=== PATIENT | female | born 1950 | race Caucasian/White ===

== ENCOUNTER 2019-08-22 07:50 | Outpatient (CLI) | payer MEDICARE, OTHER, SELFPAY ==
--- NOTE | ~2019-08-22 | MR_ITS ---
EXAMINATION: MR cervical spine wo con DATE: 08/22/2019 08:43 INDICATION: Neck pain. TECHNIQUE: Magnetic resonance imaging (MRI) of the cervical spine was performed without intravenous c ontrast. Sequences included sagittal T2-weighted FSE, sagittal T2-weighted FS FSE, sagittal T1-weight ed FSE, axial MERGE, and axial T2-weighted FSE. COMPARISON: None FINDINGS: There is 2 mm anterolisthesis of C3 on C4. There is 4 degrees levocurvature of cervical spi ne. Vertebral body heights are normal. There is mildly decreased disc height at C3-C4 and severely de creased disc height at C5-C6 and C6-C7. The spinal cord signal intensity is normal. The following dis c levels are specifically discussed: C2-C3: The disc does not extend beyond the endplate margin. There is no uncovertebral joint osteoarth ritis. There is mild bilateral facet joint osteoarthritis. There is no neural foraminal stenosis. The re is no central canal stenosis. C3-C4: The disc is bulging. There is mild bilateral uncovertebral joint osteoarthritis. There is annabel re right and mild left facet joint osteoarthritis. There is moderate right and mild left neural danni inal stenosis. There is mild central canal stenosis. C4-C5: The disc is mildly bulging. There is mild bilateral uncovertebral joint osteoarthritis. There is no facet joint osteoarthritis. There is no neural foraminal stenosis. There is mild central canal stenosis. C5-C6: The disc is bulging. There is severe bilateral uncovertebral joint osteoarthritis. There is no facet joint osteoarthritis. There is mild bilateral neural foraminal stenosis. There is mild central canal stenosis. C6-C7: The disc is bulging. There is severe bilateral uncovertebral joint osteoarthritis. There is no facet joint osteoarthritis. There is mild bilateral neural foraminal stenosis. There is mild central canal stenosis. C7-T1: The disc is bulging. There is mild bilateral uncovertebral joint osteoarthritis. There is mild bilateral facet joint osteoarthritis. There is mild bilateral neural foraminal stenosis. There is no central canal stenosis. IMPRESSION: 1. Severe cervical spondylosis. Reviewed, dictated and finalized at location A.
== END 2019-08-22 07:51 | disposition home or self-care (01) ==
PROVIDERS: Visit Provider Psychiatry & Neurology Neurology
DX: M54.2 Cervicalgia (principal)
CPT/HCPCS: 72141

== ENCOUNTER 2019-09-05 08:27 | Outpatient (CLI) | payer MEDICARE, OTHER, SELFPAY ==
--- NOTE | ~2019-09-05 | MR_ITS ---
EXAMINATION: MR lumbar spine wo con DATE: 09/05/2019 10:32 INDICATION: Lumbar radiculopathy. TECHNIQUE: Magnetic resonance imaging (MRI) of the lumbar spine was performed without intravenous con trast. Sequences included sagittal T2-weighted FSE, sagittal T2-weighted FS FSE, sagittal T1-weighted FSE, and axial T2-weighted FSE. COMPARISON: None FINDINGS: There is 15 degrees dextroscoliosis of lumbar spine. There is 3 mm anterolisthesis of L5 on S1. There is severely decreased disc height from T10-T11 through L5-S1 with endplate remodeling. The re is ligamentum flavum hypertrophy at the disc levels from L2-L3 through L5-S1. The distal spinal co rd signal intensity is normal. The conus medullaris is at L1. The following disc levels are specifica lly discussed: L1-L2: The disc is bulging and has an annular fissure. There is mild right and moderate left facet asrah int osteoarthritis. There is mild bilateral neural foraminal stenosis. There is mild central canal st enosis. L2-L3: The disc is bulging and has an annular fissure. There is moderate bilateral facet joint osteoa rthritis. There is moderate bilateral neural foraminal stenosis. There is mild central canal stenosis . L3-L4: The disc is bulging and has an annular fissure. There is severe bilateral facet joint osteoart hritis. There is moderate bilateral neural foraminal stenosis. There is mild central canal stenosis. L4-L5: The disc is bulging and has an annular fissure. There is severe bilateral facet joint osteoart hritis. There is mild right and moderate left neural foraminal stenosis. There is moderate central ca nal stenosis. L5-S1: The disc is bulging and has an annular fissure. There is severe bilateral facet joint osteoart hritis. There is moderate right and mild left neural foraminal stenosis. There is mild central canal stenosis. IMPRESSION: 1. Severe lumbar spondylosis. 2. Lumbar dextroscoliosis. Reviewed, dictated and finalized at location A.
== END 2019-09-05 08:28 | disposition home or self-care (01) ==
LOC: CHSIMG 08:29
PROVIDERS: Visit Provider Psychiatry & Neurology Neurology
DX: M54.16 Radiculopathy, lumbar region (principal)
CPT/HCPCS: 72148

== ENCOUNTER 2020-01-09 23:31 | Emergency (ER) | payer MEDICARE, OTHER, SELFPAY ==
[2020-01-09 23:31] VITALS: BP 150/90; PULSE 92; RESP 20; TEMP 36.3; O2SAT 98
--- NOTE | 2020-01-09 23:43 | ED.GENADULT ---
HPI - General Adult General Chief complaint: Skin/Abscess/Foreign Body Stated complaint: pain Source: patient Mode of arrival: ambulatory Limitations: no limitations History of Present Illness HPI narrative: Rama is a 69F that presented to the Ed with a couple concerns. She has a sebaceous cyst on her upper left back that is becoming larger and more tender. She has had them get infected before and is scared this could happen again. She also has pain above her upper left 6th and 7th teeth. She has pain and swelling there. She was told she has an infected root canal beneath a bridge. No fevers, chills, nausea, vomiting, SOB, chest pain or trouble swelling. Related Data Home Medications Medication Instructions Recorded Confirmed albuterol sulfate [Ventolin HFA] 2 puff INHALATION BID 01/09/20 01/09/20 furosemide 40 mg PO DAILY 01/09/20 01/09/20 hydrocodone-acetaminophen 1 tablet PO DIRECTED PRN 01/09/20 01/09/20 Allergies Allergy/AdvReac Type Severity Reaction Status Date / Time tetracycline Allergy Intermediate Dyspnea / Unverified 09/22/13 23:15 SOB Review of Systems Constitutional: Constitutional: Reports no additional constitutional complaints Eyes: Eyes: Reports no additional eye complaints ENT: Reports as per HPI Cardiovascular: Cardiovascular: Reports no additional cardiovascular complaints Respiratory: Respiratory: Reports no additional respiratory complaints Gastrointestinal: Gastrointestinal: Reports no additional gastrointestinal complaints Genitourinary: Genitourinary: Reports no additional female genitourinary complaints Musculoskeletal: Musculoskeletal: Reports no additional musculoskeletal complaints Integumentary/Breasts: Skin/Breast: Reports as per HPI Neurologic: Reports system reviewed and no additional complaints, except as documented Psychiatric: Psychiatric: Reports no additional psychiatric complaints Endocrine: Endocrine: Reports no additional endocrine complaints Hematologic/Lymphatic: Hematologic/Lymphatic: Reports no additional hematologic/lymphatic complaints Allergic/Immunologic: Allergic/Immunologic: Reports no additional allergic/immunologic complaints Exam Const: General: no acute distress Orientation/consciousness: patient oriented x3 HENMT: Other: Swelling and TTP above the 6th and 6th teeth Eyes: Pupils: Equal, round and reactive pupils present Neck: Neck: normal visual inspection Chest: Chest palpation & inspection: normal inspection of the chest Resp: Effort & Inspection: normal respiratory effort Cardio: Rate: regular rate Skin: General skin exam: normal color Rashes: no rashes Other: Small nodule on her upper left back that drained with pressure Neuro: General: patient oriented x3 and moves all extremities Extrem: General: normal to inspection Psych: Mental Status: mental status grossly normal Course Course Emergency Course: Yolis was evaluated. She was given a dose of clindamycin and a tetanus shot. I&D of sebaceous cyst as below. Procedures Abscess I/D back: Date of Incision: 01/09/20 Time of Incision: 23:49 Side (if applicable): right Local Anesthetic: lidocaine 1% and with epi Amount of anesthesia used (mL): 4 Technique: incised with #11 blade Amount of fluid expressed (mL): 1 Irrigation: No Packing used?: none I&D Results: Pus Abcess I&D Additional Comments: Area was prepped with betadine. anesthesia was obtained with 1% lidocaine with epi. After anesthesia was obtain a cut was made with an 11 blade. Pus was expressed. The capsule was removed with a hemostat. Hemostasis was obtained. She tolerated the procedure without complication Discharge Plan Discharge Clinical Impression: Abscess, dental, Infected sebaceous cyst Patient Disposition: Home, Self-Care Condition: Stable Instructions: Dental Abscess (ED) Additional Instructions: Please retur
[2020-01-09] MEDS: LIDO 1%/EPINEPHRINE 1:100,000 20 ML VIAL 5 ML INFILTRATE (23:50)
[2020-01-09] MEDS: CLINDAMYCIN HCL 150 MG CAP 450 MG PO (23:55)
[2020-01-10] MEDS: TETANUS,DIPHTHERIA,AC PERTUSSIS ADULT 0.5 ML (ADACEL) (00:22)
== END 2020-01-10 00:26 | disposition home or self-care (01) ==
PROVIDERS: Emergency Provider Family Medicine
DX: K04.7 Periapical abscess without sinus (principal); L72.3 Sebaceous cyst
CPT/HCPCS: 10060; 90471; 90715; 99283; A9270

== ENCOUNTER 2020-06-28 15:07 | Outpatient (CLI) | payer MEDICARE, OTHER, SELFPAY ==
--- NOTE | ~2020-06-28 | US_ITS ---
EXAMINATION: US retroperitoneal comp DATE: 06/28/2020 15:52 INDICATION: Nephrolithiasis TECHNIQUE: Multiple grayscale and Doppler ultrasound images of the kidneys were obtained. COMPARISON: 12/04/2017 FINDINGS: The right kidney measures 10.0 x 4.4 x 5.5 cm. The left kidney measures 12.2 x 5.1 x 6.6 cm . The kidneys demonstrate normal parenchymal echogenicity. No definite nephrolithiasis is identified. There is mild right hydronephrosis. The bladder is not distended. IMPRESSION: 1. Mild right hydronephrosis. No definite nephrolithiasis identified. Reviewed, dictated and finalized at location A.
== END 2020-06-28 15:08 | disposition home or self-care (01) ==
DX: N20.0 Calculus of kidney (principal)
CPT/HCPCS: 76770

== ENCOUNTER 2020-11-01 13:06 | Emergency (ER) | payer MEDICARE, OTHER, SELFPAY ==
--- NOTE | ~2020-11-01 | CT_ITS ---
EXAMINATION: CT abdomen pelvis wo con EXAM DATE: 11/01/2020 15:10 INDICATION: Left flank pain. TECHNIQUE: Spiral CT of the abdomen and pelvis was performed without contrast. Axial, coronal and sag ittal images were reviewed. The dose-length product (DLP) for this examination was 969.91 mGy-cm. T he exposure was tailored according to patient size (auto mA exposure control), and iterative reconstr uction (ASIR) was used as additional dose reduction technique. There is no prior study for compariso n. FINDINGS: Several punctate bilateral calyceal stones. No ureteral stones or hydronephrosis. Equivocal mild left perinephric, peripelvic fat stranding. Can't exclude recently passed ureteral stone or upp er urinary tract infection. The uterus is not identified and has likely been surgically resected. Th e bladder is unremarkable. Left adrenal gland hyperplasia versus adenoma. The liver, spleen, adrenal glands and pancreas are otherwise unremarkable. Gallbladder is unremarkable. No biliary obstruction . There is no retroperitoneal or pelvic lymphadenopathy. There is moderate scattered arteriosclero tic disease. There are no findings to suggest appendicitis. The stomach and small bowel are unremarkable. There is moderate amount of colonic stool. There is moderate sigmoid predominant colonic diverticulosis. T here is no adjacent inflammatory change to suggest diverticulitis. No free intraperitoneal gas. Th e heart is normal in size. There are no pericardial or pleural effusions. The lung bases are unrema rkable. Severe lumbar disc disease. There are no osteoblastic or osteolytic lesions identified. IMPRESSION: 1. Mild left peripelvic, perirenal nonspecific fat stranding, possible upper UTI or recently passed ureteral stone. 2. Punctate bilateral nephrolithiasis. 3. Colonic diverticulosis. Reviewed, dictated and finalized at location B. IMPRESSION: 1. Mild left peripelvic, perirenal nonspecific fat stranding, possible upper U TI or recently passed ureteral stone. 2. Punctate bilateral nephrolithiasis. 3. Colonic diverticulosis.
[2020-11-01 14:36] VITALS: BP 114/69; PULSE 87; RESP 20; TEMP 37.1; O2SAT 95
[2020-11-01 14:53] LABS: Add Urine Microscopic? YES; Appearance Urine Clear (Clear); Bilirubin Urine Negative (Negative); Blood Urine 1+ (Negative); Color Urine Light Yellow (Yellow); Glucose Urine UA Negative (Negative); Ketones Urine Negative (Negative); Leukocyte Esterase Ur Negative (Negative); Nitrate Urine Negative (Negative); Protein Urine Negative (Negative); Specific Grav Ur 1.015 (1.010-1.020); Urobilinogen Urine 0.2 mg/dL (0.2-1.0)
[2020-11-01 14:57] LABS: Bacteria Urine 1+ /hpf; Squamous Epithelial Cell Urine Few /hpf (Few); WBC Urine None seen /hpf (0-3)
[2020-11-01] MEDS: ACETAMINOPHEN 325 MG TABLET 650 MG PO (15:30)
--- NOTE | 2020-11-01 16:26 | ED.ABDPAIN ---
HPI - Abdominal Pain General Chief Complaint: Abdominal Pain Stated Complaint: shaking/sweating and pain on L Side Time Seen by Provider: 11/01/20 13:08 Source: patient and RN notes reviewed Limitations: no limitations History of Present Illness MD elicited complaint: abdominal pain and flank pain Onset (ago): hour(s) (4) Pain Consistency: constant Location: L flank Severity: moderate Pain scale (0-10): 8 Quality: cramping, aching and dull Migration to: no migration Exacerbating factors: nothing Relieving factors: nothing Associated symptoms: nausea and dysuria Related Data Home Medications Medication Instructions Recorded Confirmed albuterol sulfate [Ventolin HFA] 2 puff INHALATION BID 01/09/20 11/03/20 furosemide 40 mg PO DAILY 01/09/20 11/03/20 Allergies Allergy/AdvReac Type Severity Reaction Status Date / Time tetracycline Allergy Intermediate Dyspnea / Verified 11/03/20 16:37 SOB NSAIDS (Non-Steroidal AdvReac Unknown Verified 11/03/20 16:37 Anti-Inflamma Review of Systems Review of Systems: All systems reviewed & are unremarkable except as noted in HPI and below PMFSH Past Medical History Medical History Arthritis Thoracic radiculopathy Social History Social History Smoking status: Former smoker Alcohol intake: former Exam Const: General: no acute distress and alert Orientation/consciousness: patient oriented x3 HENMT: Head: normal to inspection Ears: TM's normal bilaterally Face and sinus: normal facial exam Mouth: Yes moist mucous membranes Eyes: Conjunctivae: conjunctivae normal Pupils: Equal, round and reactive pupils present EOM: EOMs intact bilaterally Neck: Neck: normal visual inspection Chest: Chest palpation & inspection: normal inspection of the chest Resp: Effort & Inspection: normal respiratory effort Auscultation: clear to auscultation bilaterally Cardio: Rate: regular rate Rhythm: regular rhythm GI: GI Palp: Yes Soft to palpation and No Tenderness to palpation present (GI) Percussion: Yes normal to percussion : General: Yes CVA tenderness Back/Spine/Pelvis: Back: CVA tenderness Skin: General skin exam: normal color Rashes: no rashes Neuro: General: patient oriented x3, moves all extremities, no meningeal signs, no focal motor deficits and CN's II-XI intact bilaterally Extrem: General: normal to inspection and no pedal edema Psych: Appearance: grossly normal Mental Status: mental status grossly normal Affect: normal affect Thought content: Yes Normal thought content present Course Course Emergency Course: pt was stable in the ED, less painful Reevaluation(s) Reevaluation #1: less painful in the ED. Date: 11/01/20 Time: 15:30 Vital Signs Vital signs: Vital Signs Temperature 37.1 C 11/01/20 14:36 Pulse Rate 87 11/01/20 14:36 Respiratory Rate 20 11/01/20 14:36 Blood Pressure 114/69 11/01/20 14:36 Pulse Oximetry 95 11/01/20 14:36 Temperature 36.7 C 11/01/20 16:57 Pulse Rate 78 11/01/20 16:57 Respiratory Rate 20 11/01/20 16:57 Blood Pressure 137/78 11/01/20 16:57 Pulse Oximetry 95 11/01/20 16:57 MDM - Abdominal Pain Differential Diagnosis Differential diagnosis: Likely abdominal pain, calculus of kidney, diverticulitis, gastroenteritis and small bowel obstruction Medical Records Attestation: I reviewed the patient's medical records. Lab Data Attestation: I reviewed the patient's lab results. Labs: Lab Results 11/01/20 Range/Units 14:30 Urine Color Light yellow (Yellow) Urine Appearance Clear (Clear) Urine pH 6.0 (5.0-8.0) Ur Specific [place] 1.015 (1.010-1.020) Urine Protein Negative (Negative) Urine Glucose (UA) Negative (Negative) Urine Ketones Negative (Negative) Ur Blood (Man) 1+ H (Negative) Urine Nitrate Negative (Negative) Urine B
[2020-11-01] MEDS: LIDOCAINE HCL 1% LOCAL INJ 20 ML VIAL (16:40)
[2020-11-01] MEDS: cefTRIAXone 1 GM VIAL IM (16:40)
[2020-11-01 16:57] VITALS: BP 137/78; PULSE 78; RESP 20; TEMP 36.7; O2SAT 95
== END 2020-11-01 17:02 | disposition home or self-care (01) ==
PROVIDERS: Emergency Provider Emergency Medicine
DX: N39.0 Urinary tract infection, site not specified (principal)
CPT/HCPCS: 74176; 81001; 96372; 99283; 99284; A9270; J0696

== ENCOUNTER 2021-01-10 08:12 | Outpatient (CLI) | payer MEDICARE, OTHER, SELFPAY ==
--- NOTE | ~2021-01-10 | MR_ITS ---
EXAMINATION: MR cervical spine wo con DATE: 01/10/2021 11:40 INDICATION: Cervical radiculopathy. Neck pain. TECHNIQUE: Magnetic resonance imaging (MRI) of the cervical spine was performed without intravenous c ontrast. Sequences included sagittal T2-weighted FSE, sagittal T2-weighted FS FSE, sagittal T1-weight ed FSE, axial MERGE, and axial T2-weighted FSE. COMPARISON: Cervical spine MRI 08/22/2019 FINDINGS: There is 2 mm anterolisthesis of C3 on C4, C6 on C7, and C7 on T1. Vertebral body heights a re normal. There is mildly decreased disc height at C3-C4, severely decreased disc height at C5-C6 an d C6-C7, and mildly decreased disc height at C7-T1 with endplate remodeling. The spinal cord signal i ntensity is normal. The following disc levels are specifically discussed: C2-C3: The disc does not extend beyond the endplate margin. There is no uncovertebral joint osteoarth ritis. There is mild bilateral facet joint osteoarthritis. There is no neural foraminal stenosis. The re is no central canal stenosis. C3-C4: The disc is bulging. There is severe right and moderate left uncovertebral joint osteoarthriti s. There is severe bilateral facet joint osteoarthritis. There is mild right neural foraminal stenosi s. There is mild central canal stenosis. C4-C5: The disc is bulging. There is mild bilateral uncovertebral joint osteoarthritis. There is mode rate right and mild left facet joint osteoarthritis. There is mild bilateral neural foraminal stenosi s. There is mild central canal stenosis. C5-C6: The disc is bulging. There is severe bilateral uncovertebral joint osteoarthritis. There is mo derate bilateral facet joint osteoarthritis. There is mild bilateral neural foraminal stenosis. There is mild central canal stenosis with ventral indentation of the spinal cord. C6-C7: The disc is bulging. There is moderate bilateral uncovertebral joint osteoarthritis. There is mild bilateral facet joint osteoarthritis. There is mild bilateral neural foraminal stenosis. There i s no central canal stenosis. C7-T1: There is a central extrusion. There is no uncovertebral joint osteoarthritis. There is severe bilateral facet joint osteoarthritis. There is no neural foraminal stenosis. There is no central howie l stenosis. IMPRESSION: 1. Severe cervical spondylosis, stable from 08/22/2019. Reviewed, dictated and finalized at location A. 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
--- NOTE | ~2021-01-10 | MR_ITS ---
EXAMINATION: MR thoracic spine wo con DATE: 01/10/2021 11:40 INDICATION: Thoracic radiculopathy. Mid and low back pain. TECHNIQUE: Magnetic resonance imaging (MRI) of the thoracic spine was performed without intravenous c ontrast. Sagittal localizer T1-weighted FSE of the cervical spine was obtained. Thoracic spine sequen radha included sagittal T2-weighted FSE, sagittal T1-weighted FSE, sagittal T2-weighted FS FSE, and axi al T2-weighted FSE. COMPARISON: None FINDINGS: There is 8 degrees levocurvature of thoracolumbar spine. There is a chronic height loss of multiple vertebral bodies. There is severely decreased disc height at T6-T7, T8-T9, T9-T10, and T11-T 12 and mild to moderately decreased disc height at most other levels. There is multilevel mild facet joint osteoarthritis. There is mild right neural foraminal stenosis at T9-T10, T10-T11, and T11-T12 a nd mild left neural foraminal stenosis at T4-T5. The discs are bulging at most levels with mild centr al canal stenosis. IMPRESSION: 1. Severe thoracic spondylosis. Reviewed, dictated and finalized at location A. K ASSOCIATE
--- NOTE | ~2021-01-10 | MR_ITS ---
EXAMINATION: MR lumbar spine wo con DATE: 01/10/2021 11:41 INDICATION: Radiculopathy, lumbar region. TECHNIQUE: Magnetic resonance imaging (MRI) of the lumbar spine was performed without intravenous con trast. Sequences included sagittal T2-weighted FSE, sagittal T2-weighted FS FSE, sagittal T1-weighted FSE, and axial T2-weighted FSE. COMPARISON: Lumbar spine MRI 09/05/2019 FINDINGS: There is 9 degrees levocurvature of thoracolumbar spine. There is 3 mm anterolisthesis of L 4 on L5. There is severely decreased disc height at T12-L1, moderately decreased disc height at L1-L2 , and severely decreased disc height from L2-L3 through L4-L5. There is ligamentum flavum hypertroph y at the disc levels from T12-L1 through L4-L5. The distal spinal cord signal intensity is normal. Th e conus medullaris is at L1. The following disc levels are specifically discussed: T12-L1: The disc is bulging and has an annular fissure. There is severe right and mild left facet sonny nt osteoarthritis. There is moderate right and mild left neural foraminal stenosis. There is mild codie tral canal stenosis. L1-L2: The disc is bulging and has an annular fissure. There is moderate bilateral facet joint osteoa rthritis. There is mild bilateral neural foraminal stenosis. There is mild central canal stenosis. L2-L3: The disc is bulging and has an annular fissure. There is severe bilateral facet joint osteoart hritis. There is moderate bilateral neural foraminal stenosis. There is mild central canal stenosis. L3-L4: The disc is bulging and has an annular fissure. There is severe bilateral facet joint osteoart hritis. There is moderate bilateral neural foraminal stenosis. There is mild central canal stenosis. L4-L5: The disc is bulging and has an annular fissure. There is severe bilateral facet joint osteoart hritis. There is mild right and moderate left neural foraminal stenosis. There is moderate central ca nal stenosis. L5-S1: The disc is bulging and has an annular fissure. There is severe bilateral facet joint osteoart hritis. There is moderate bilateral neural foraminal stenosis. There is mild central canal stenosis. IMPRESSION: 1. Severe lumbar spondylosis, stable from 09/05/2019. Reviewed, dictated and finalized at location A. 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
== END 2021-01-10 08:13 | disposition home or self-care (01) ==
PROVIDERS: Visit Provider Psychiatry & Neurology Neurology
DX: M54.14 Radiculopathy, thoracic region (principal); M54.12 Radiculopathy, cervical region; M54.16 Radiculopathy, lumbar region
CPT/HCPCS: 72141; 72146; 72148

== ENCOUNTER 2021-03-22 10:05 | Outpatient (CLI) | payer MEDICARE, OTHER, SELFPAY ==
--- NOTE | ~2021-03-22 | XR_ITS ---
XR shoulder LT min 2V DATE: 03/22/2021 11:15 INDICATION: Left shoulder pain. Polyarthritis. TECHNIQUE: 5 views COMPARISON: None FINDINGS: There is diffuse osteopenia. There is mild spurring and joint space narrowing at the left acromioclavicular joint. There is severe joint space narrowing as well as spurring at the left glenohumeral joint consistent w ith advanced osteoarthritis. No fracture or dislocation, periosteal reaction or bone destruction or abnormal soft tissue calcifica tion of the left shoulder. IMPRESSION: Osteopenia Degenerative change at the, clavicular joint Prominent osteoarthritis at the left glenohumeral joint Reviewed, dictated and finalized at location A. OR ENVIRONMENTAL ENGINEER
--- NOTE | ~2021-03-22 | XR_ITS ---
XR knee LT 3V DATE: 03/22/2021 11:13 INDICATION: Left knee pain. Polyarticular osteoarthritis. TECHNIQUE: AP, crosstable lateral and sunrise views COMPARISON: None FINDINGS: There is diffuse osteopenia. There is tricompartment osteoarthritis, including prominent joint space narrowing and prominent peria rticular spurring of the patellofemoral compartment, prominent joint space narrowing and mild particu lar spurring at the medial compartment, mild particular spurring at the lateral compartment. No fracture or dislocation, joint effusion, radiopaque intra-articular loose body or chondrocalcinosi s is noted. IMPRESSION: Tricompartment osteoarthrosis, most prominent at the patellofemoral and medial compartmen ts Osteopenia Reviewed, dictated and finalized at location A. FORM PREPARER IMPRESSION: Tricompartment osteoarthrosis, most prominent at the patellofemoral and medial compartments Osteopenia
--- NOTE | ~2021-03-22 | XR_ITS ---
XR sacroiliac joints min 3V DATE: 03/22/2021 11:14 INDICATION: Polyarticular osteoarthritis. Bilateral hip pain. TECHNIQUE: AP and bilateral oblique views COMPARISON: None FINDINGS: Diffuse osteopenia. Severe degenerative disc disease at L3-4, L4-5 and L5-S1. There is degenerative change at the sacroiliac joints and pubic symphysis. The sacroiliac joints are intact, without evidence of fracture, dislocation, erosive change or ankylo sis. IMPRESSION: Osteopenia Degenerative change at pubic symphysis and sacroiliac joints Severe degenerative disc disease at L3-4, L4-5 and L5-S1 Reviewed, dictated and finalized at Location A. Reviewed, dictated and finalized at location A. AND WILDLIFE TECHNICIAN
--- NOTE | ~2021-03-22 | XR_ITS ---
XR hip BI wo pelvis DATE: 03/22/2021 11:13 INDICATION: Bilateral hip pain. Polyarticular osteoarthritis. TECHNIQUE: AP and lateral views of each hip COMPARISON: None FINDINGS: Diffuse osteopenia. The pubic symphysis and sacroiliac joints are intact. No fracture or dislocation, avascular necrosis or bone destruction of either hip. Hip joint spaces ar e symmetric and relatively preserved. IMPRESSION: Osteopenia Reviewed, dictated and finalized at location A. TAL HARDWARE DESIGN ENGINEER IMPRESSION: Osteopenia
--- NOTE | ~2021-03-22 | XR_ITS ---
XR shoulder RT min 2V DATE: 03/22/2021 11:14 INDICATION: Right shoulder pain. Polyarthritis. TECHNIQUE: 4 views COMPARISON: None FINDINGS: There is diffuse osteopenia. There is degenerative spurring and joint space narrowing at the right acromioclavicular joint. No fracture or dislocation, periosteal reaction or bone destruction. No abnormal right shoulder soft tissue calcification. IMPRESSION: Osteopenia Degenerative change at the right acromioclavicular joint Reviewed, dictated and finalized at location A. 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
== END 2021-03-22 10:06 | disposition home or self-care (01) ==
DX: M15.9 Polyosteoarthritis, unspecified (principal); M25.512 Pain in left shoulder; M25.511 Pain in right shoulder; M25.552 Pain in left hip; M25.551 Pain in right hip; M25.562 Pain in left knee; M25.561 Pain in right knee; M53.3 Sacrococcygeal disorders, not elsewhere classified
CPT/HCPCS: 72202; 73030; 73521; 73562

== ENCOUNTER 2021-04-12 18:30 | Emergency (ER) | payer MEDICARE, OTHER, SELFPAY ==
--- NOTE | ~2021-04-12 | XR_ITS ---
XR chest 1V portable 04/12/2021 19:23 Indication: Redness of breath with dry cough Procedure: AP portable chest Comparison: Comparison to multiple prior studies sequentially, with oldest reviewed study dated 04/2013. Findings: Heart size normal. No focal air space disease, pulmonary edema, pleural effusion or suspect ed pneumothorax. Impression: 1: No acute cardiopulmonary disease. Reviewed, dictated and finalized at location A. [employer] Impression: 1: No acute cardiopulmonary disease.
[2021-04-12 18:35] VITALS: BP 148/92; PULSE 82; RESP 20; TEMP 36.2; O2SAT 94
--- NOTE | 2021-04-12 18:51 | ED.SOB ---
HPI - SOB/Dyspnea General Chief Complaint: Shortness of Breath/Dyspnea Stated Complaint: trouble breathing Time Seen by Provider: 04/12/21 18:51 Source: patient Mode of arrival: ambulatory History of Present Illness HPI Narrative: 70-year-old female with a history of smoking, COPD, arthritis with cervical and lumbar radiculopathy, TIA, hydronephrosis right kidney, was exposed to Lysol 2 days ago which caused her to have -- nonproductive cough -- severe shortness of breath with wheezing no fever or chest pain. The patient has used bronchodilator treatment without any improvement. MD elicited complaint: shortness of breath, cough and asthma attack Pertinent past history: COPD Onset (ago): hour(s) ( Three days ago) Timing: constant Exacerbating factors: exertion Relieving factors: nothing Known history of: COPD Associated symptoms: denies other symptoms, cough, wheezing and chest congestion Treatment prior to arrival: bronchodilator Related Data Home oxygen amount: none Home Medications Medication Instructions Recorded Confirmed albuterol sulfate [Ventolin HFA] 2 puff INHALATION BID 01/09/20 04/12/21 furosemide 20 mg PO DAILY 01/09/20 04/12/21 hydrocodone-acetaminophen 1 tablet PO TID 04/12/21 04/12/21 Allergies Allergy/AdvReac Type Severity Reaction Status Date / Time tetracycline Allergy Intermediate Dyspnea / Verified 11/03/20 16:37 SOB NSAIDS (Non-Steroidal AdvReac Unknown Verified 11/03/20 16:37 Anti-Inflamma Review of Systems Review of Systems: All systems reviewed & are unremarkable except as noted in HPI and below Constitutional: Constitutional: Reports as per HPI and Reports no additional constitutional complaints Eyes: Eyes: Reports as per HPI and Reports no additional eye complaints ENT: Reports system reviewed and no additional complaints, except as documented Cardiovascular: Cardiovascular: Reports as per HPI and Reports no additional cardiovascular complaints Respiratory: Respiratory: Reports as per HPI, Reports chest congestion, Reports cough, Reports dyspnea and Reports wheezing Gastrointestinal: Gastrointestinal: Reports as per HPI and Reports no additional gastrointestinal complaints Genitourinary: Genitourinary: Reports no additional female genitourinary complaints Musculoskeletal: Musculoskeletal: Reports back pain and Reports arthralgias Comments: chronic neck pain, back pain and joint pain. Integumentary/Breasts: Skin/Breast: Reports system reviewed and no additional complaints, except as docu Neurologic: Reports system reviewed and no additional complaints, except as documented and Reports as per HPI Psychiatric: Psychiatric: Reports no additional psychiatric complaints Endocrine: Endocrine: Reports no additional endocrine complaints Hematologic/Lymphatic: Hematologic/Lymphatic: Reports no additional hematologic/lymphatic complaints Allergic/Immunologic: Allergic/Immunologic: Reports no additional allergic/immunologic complaints [facility] Past Medical History Medical History (Updated 04/12/21 @ 20:24 by Douglas Herrera MD) Arthritis COPD (chronic obstructive pulmonary disease) Thoracic radiculopathy Social History Social History Smoking status: Former smoker Alcohol intake: former Exam Const: General: no acute distress and alert Orientation/consciousness: patient oriented x3 HENMT: Head: normal to inspection Eyes: Conjunctivae: conjunctivae normal Pupils: Equal, round and reactive pupils present EOM: EOMs intact bilaterally Neck: Neck: normal visual inspection and no lymphadenopathy Chest: Chest palpation & inspection: normal inspection of the chest and abnormal inspection of the chest Resp: Effort & Inspection: labored and uses accessory muscles Auscultation: wheezes and diminished lung sounds Cardio: Rate: regular rate Rhythm: regular rhythm GI: GI Palp: Yes Soft to palpation
--- NOTE | 2021-04-12 19:06 | ECG_ITS ---
Measurements Intervals [place] Rate: 85 P: 114 WI: 149 QRS: 106 QRSD: 84 T: 149 QT: 345 QTc: 412 Interpretive Statements SINUS RHYTHM RIGHT AXIS DEVIATION LIMB LEADS ARE SWITCHED. POSSIBLE INFERIOR MYOCARDIAL INFARCTION , PROBABLY OLD [30 ms Q WAVE IN II/aVF] ABNORMAL EKG COMPARED TO ECG 05/28/2018 19:06:14 SINUS RHYTHM NOW PRESENT Electronically Signed On 04-13-2021 9:39:27 [employer] by Alfred Shelton M.D.
--- NOTE | 2021-04-12 19:07 | PC.NURSE ---
report to syl christian
[2021-04-12 19:26] VITALS: PULSE 84; RESP 18; O2SAT 97
[2021-04-12 19:30] LABS: Basophils Absolute Auto 0.06 K/mm3 (0.00-0.10); Basophils Percent Auto 0.8 % (0.0-1.0); Eosinophils Percent Auto 5.1 % (1.0-6.0); Hematocrit 48.6 % (35.0-42.0); Hemoglobin 15.6 g/dL (11.7-13.8); Immature Granulocyte Absolute 0.02 K/mm3 (0.00-0.00); Immature Granulocyte Percent A 0.3 % (0.0-0.0); Lymphocytes Absolute Auto 2.57 K/mm3 (1.10-4.50); Lymphocytes Percent Auto 32.8 % (18.0-42.0); Mean Corpuscular HGB Conc 32.1 g/dL (32.0-36.0); Mean Corpuscular Volume 96.6 fL (78.0-102.0); Mean Platelet Volume 10.6 fl (9.2-11.8); Monocytes Absolute Auto 0.76 K/mm3 (0.10-0.90); Monocytes Percent Auto 9.7 % (2.0-11.0); Neutrophils Percent Auto 51.3 % (50.0-70.0); Platelet Count Result 236 K/mm3 (150-420); Red Blood Count 5.03 M/mm3 (4.20-5.40); Red Cell Distribution Width 12.3 % (11.6-14.4); White Blood Count 7.8 K/mm3 (4.8-10.8)
[2021-04-12] MEDS: IPRATROPIUM 0.5 MG/ALBUTEROL SULFATE 2.5 MG AMPUL.NEB 3 ML INHALATION (19:30)
[2021-04-12 19:34] VITALS: PULSE 89; RESP 18; O2SAT 99
[2021-04-12 19:43] LABS: Influenza Control Valid (Valid)
[2021-04-12 19:44] LABS: INR 1.1; Partial Thromboplastin Time 29.1 SEC (23.90-30.70); Prothrombin Time 11.4 Seconds (9.50-12.10)
[2021-04-12 19:51] LABS: Alanine Aminotransferase 19 U/L (14-59); Albumin Level 3.8 g/dL (3.4-5.0); Alkaline Phosphatase 120 U/L (46-116); Anion Gap 11 mmol/L (8-16); Aspartate Amino Transferase 18 U/L (15-37); Bilirubin,Total 0.3 mg/dL (0.00-1.00); Blood Urea Nitrogen 16 mg/dL (7-18); Calcium 9.4 mg/dL (8.5-10.1); Carbon Dioxide 25 mmol/L (21-32); Chloride 102 mmol/L (98-108); Estimated CRCL calculation 70 ml/min; Estimated Glomerular Filt Rate > 60; Glucose 95 mg/dL (70-99); Magnesium 2.2 mg/dL (1.8-2.4); NT Pro B Type Natriuretic Pept 453 pg/mL (0-125); Osmolality Calculated 287 mOsm/kg (285-295); Potassium 4.5 mmol/L (3.5-5.1); Sodium 138 mmol/L (136-145); Total Protein 7.8 g/dL (6.4-8.2); Troponin I 10.6 ng/L (0.00-60.4)
[2021-04-12 19:53] LABS: SARS-CoV-2 Ag Negative (Negative)
[2021-04-12 19:57] VITALS: PULSE 85; RESP 22; O2SAT 95
[2021-04-12] MEDS: methylPREDNISolone SOD SUCC 40 MG VIAL IV PUSH (20:13)
[2021-04-12] MEDS: AZITHROMYCIN 250 MG TABLET 500 MG PO (20:15)
[2021-04-12 20:30] VITALS: BP 142/87; PULSE 88; RESP 20; TEMP 36.6; O2SAT 95
--- NOTE | 2021-04-13 15:37 | PC.NURSE ---
Pt called and stated QVAR inhaler was not covered by insurance. Pulmicort was covered per Rajan at [facility]. Per Dr. Malik barr to change prescription to the lowest dose 1-2 times per day. Pt notified prescription would be changed.
== END 2021-04-12 20:43 | disposition home or self-care (01) ==
PROVIDERS: Emergency Provider Internal Medicine Critical Care Medicine
DX: J44.1 Chronic obstructive pulmonary disease with (acute) exacerbation (principal); Z87.891 Personal history of nicotine dependence; Z20.822 Contact with and (suspected) exposure to COVID-19
CPT/HCPCS: 36415; 71045; 80053; 83735; 83880; 84484; 85025; 85610; 85730; 87426; 87804; 93005; 94640; 96374; 99284; A9270; C9803; J2920

== ENCOUNTER 2021-06-26 19:30 | Emergency (ER) | payer MEDICARE, OTHER, SELFPAY ==
[2021-06-26 20:25] VITALS: BP 130/66; PULSE 94; RESP 22; TEMP 36.8; O2SAT 92
--- NOTE | 2021-06-26 20:31 | ED.GENADULT ---
HPI - General Adult General Chief complaint: Shortness of Breath/Dyspnea Stated complaint: cough, trouble breathing, draining in tooth,ticks Time Seen by Provider: 06/26/21 20:20 Related Data Home Medications Medication Instructions Recorded Confirmed albuterol sulfate [Ventolin HFA] 2 puff INHALATION BID 01/09/20 06/26/21 budesonide [Pulmicort Flexhaler] 1 inh INHALATION DAILY 06/26/21 06/26/21 Allergies Allergy/AdvReac Type Severity Reaction Status Date / Time tetracycline Allergy Intermediate Dyspnea / Verified 05/03/21 14:12 SOB NSAIDS (Non-Steroidal AdvReac Unknown Verified 05/03/21 14:12 Anti-Inflamma PMFSH Past Medical History Medical History Arthritis COPD (chronic obstructive pulmonary disease) Thoracic radiculopathy Social History Social History Smoking status: Former smoker Alcohol intake: former Course Vital Signs Vital signs: Vital Signs Temperature 36.8 C 06/26/21 20:25 Pulse Rate 94 06/26/21 20:25 Respiratory Rate 22 H 06/26/21 20:25 Blood Pressure 130/66 06/26/21 20:25 Pulse Oximetry 92 06/26/21 20:25 Temperature 36.6 C 06/26/21 21:01 Pulse Rate 74 06/26/21 21:01 Respiratory Rate 18 06/26/21 21:01 Blood Pressure 140/75 06/26/21 21:01 Pulse Oximetry 95 06/26/21 21:01 Medical Decision Making Vital Signs Vital Signs: Vital Signs Temperature 36.8 C 06/26/21 20:25 Pulse Rate 94 06/26/21 20:25 Respiratory Rate 22 H 06/26/21 20:25 Blood Pressure 130/66 06/26/21 20:25 Pulse Oximetry 92 06/26/21 20:25 Temperature 36.6 C 06/26/21 21:01 Pulse Rate 74 06/26/21 21:01 Respiratory Rate 18 06/26/21 21:01 Blood Pressure 140/75 06/26/21 21:01 Pulse Oximetry 95 06/26/21 21:01 Discharge Plan Discharge Clinical Impression: Acute gingivitis, COPD (chronic obstructive pulmonary disease) with acute bronchitis Patient Disposition: Home, Self-Care Condition: Stable Instructions: Antibiotic Form, Gingivitis (ED), Acute Bronchitis (ED), COPD (Chronic Obstructive Pulmonary Disease) (ED) Additional Instructions: Take methylprednisone 4 mg twice a day for 3-5 days . Continue DuoNeb treatments as before. Antibiotics as prescribed . Continue all routine medications. Follow-up with your doctor as needed. Prescriptions: New amoxicillin-pot clavulanate 875-125 mg tablet 1 tablet PO Q12H Qty: 14 RF: 0 methylprednisolone [Medrol (Kyle)] 4 mg tablets,dose pack 4 mg PO DAILY Qty: 21 RF: 0 No Action methylprednisolone [Methylpred DP] 4 mg tablets,dose pack 4 mg PO DAILY Qty: 21 RF: 0 ipratropium-albuterol 0.5 mg-3 mg(2.5 mg base)/3 mL solution for nebulization 3 ml inhalation Q6H PRN (Reason: shortness of breath or wheezing) Qty: 90 RF: 0 beclomethasone dipropionate 40 mcg/actuation HFA aerosol breath activated 1 inh inhalation Q12H Qty: 10.6 RF: 0 Pulmicort Flexhaler 90 mcg/actuation aerosol powdr breath activated 1 inh INHALATION DAILY RF: 0 albuterol sulfate [Ventolin HFA] 90 mcg/actuation HFA aerosol inhaler 2 puff INHALATION BID RF: 0 celecoxib 200 mg capsule See Rx Instructions .ROUTE .COMPLEX Qty: 60 RF: 3 ropinirole 1 mg tablet 1 mg PO QHS Qty: 30 RF: 0 Follow-up/Referrals: Milly,Emeterio Tubbs MD [Primary Care Provider] -
--- NOTE | 2021-06-26 20:32 | ED.SOB ---
HPI - SOB/Dyspnea General Chief Complaint: Shortness of Breath/Dyspnea Stated Complaint: cough, trouble breathing, draining in tooth,ticks Time Seen by Provider: 06/26/21 20:20 History of Present Illness HPI Narrative: 70-year-old female patient with a known history of COPD presents to ER with complaints of increasing wheezing and shortness of breath for the last several days. Patient relates to having had an abscess of the gum around the bridge work of her teeth a few days ago and since then she has not felt well. She states that she had fever yesterday but denies any chills. She is not a smoker however she claims that she is around people who smoke. She does use DuoNeb treatments every 6 hours and her next 1 is due at 9:00 p.m. nunu. She has already started taking methylprednisone which she had from leftover prescription but she apparently took only half a tablet and states that that made her feel better. Patient also expresses a concern about having had some ticks on to the back of her neck that her family/friends help to pick out and she wants to make sure that there were none left there. The cough is typically dry. No sputum production or blood in sputum is reported at this time. The patient states that she will follow up with the dentist as needed. Related Data Home Medications Medication Instructions Recorded Confirmed albuterol sulfate [Ventolin HFA] 2 puff INHALATION BID 01/09/20 06/26/21 budesonide [Pulmicort Flexhaler] 1 inh INHALATION DAILY 06/26/21 06/26/21 Allergies Allergy/AdvReac Type Severity Reaction Status Date / Time tetracycline Allergy Intermediate Dyspnea / Verified 05/03/21 14:12 SOB NSAIDS (Non-Steroidal AdvReac Unknown Verified 05/03/21 14:12 Anti-Inflamma Review of Systems Review of Systems: All systems reviewed & are unremarkable except as noted in HPI and below PMFSH Past Medical History Medical History Arthritis COPD (chronic obstructive pulmonary disease) Thoracic radiculopathy Social History Social History Smoking status: Former smoker Alcohol intake: former Exam Narrative: Alert female patient in no acute distress. Afebrile. Other vital signs are stable. HEENT: atraumatic head. Pupils midsize and equal reactive to light. Patient does have gingivitis over the right upper premolar areas. Neck is supple. Some excoriation ballesteros are noted on the nape of the neck but there are no intact takes noted there. Chest wall is nontender. There are no retractions noted. Patient does have some coarse rhonchi throughout the lung garcia. She does not appear in any acute respiratory distress at this time. Heart tones are regular. No murmurs are heard. Extremities are atraumatic. Skin is warm and dry and turgor is normal. Neurologic examination is normal. Mood and affect are normal. Course Course Emergency Course: Patient was offered an injectable steroid but she refuses it however she states that she has methylprednisone at home and she has been advised to take 4 mg twice a day for at least 3 days. Patient has also been started on Augmentin here for her gingivitis and hopefully that will cover her bronchitis as well. She is also being given a DuoNeb treatment in the ER. Vital Signs Vital signs: Vital Signs Temperature 36.8 C 06/26/21 20:25 Pulse Rate 94 06/26/21 20:25 Respiratory Rate 22 H 06/26/21 20:25 Blood Pressure 130/66 06/26/21 20:25 Pulse Oximetry 92 06/26/21 20:25 Temperature 36.8 C 06/26/21 20:25 Pulse Rate 94 06/26/21 20:25 Respiratory Rate 22 H 06/26/21 20:25 Blood Pressure 130/66 06/26/21 20:25 Pulse Oximetry 92 06/26/21 20:25 Discharge Plan Discharge Clinical Impression: Acute gingivitis, COPD (chronic obstructive pulmonary disease) with acute bronchitis Patient Disposition: Home, Self-Care
[2021-06-26 20:41] VITALS: PULSE 92; RESP 20; O2SAT 92
[2021-06-26] MEDS: IPRATROPIUM 0.5 MG/ALBUTEROL SULFATE 2.5 MG AMPUL.NEB 3 ML INHALATION (20:41)
[2021-06-26] MEDS: AMOXICILLIN/CLAVULANATE K 875-125 MG TAB 1 TABLET PO (20:43)
[2021-06-26 21:01] VITALS: BP 140/75; PULSE 74; RESP 18; TEMP 36.6; O2SAT 95
== END 2021-06-26 21:09 | disposition home or self-care (01) ==
PROVIDERS: Emergency Provider Emergency Medicine; PCP Family Medicine
DX: J44.0 Chronic obstructive pulmonary disease with (acute) lower respiratory infection (principal); J20.9 Acute bronchitis, unspecified; K05.10 Chronic gingivitis, plaque induced; M54.14 Radiculopathy, thoracic region; Z87.891 Personal history of nicotine dependence; Z79.51 Long term (current) use of inhaled steroids
CPT/HCPCS: 94640; 99283; A9270

== ENCOUNTER 2021-10-27 12:30 | Outpatient (CLI) | payer MEDICARE, OTHER, SELFPAY ==
--- NOTE | ~2021-10-27 | XR_ITS ---
EXAMINATION: [id number]_[id number]_CR DATE: 10/27/2021 13:12 INDICATION: Left foot pain. TECHNIQUE: 3 views of left foot were obtained. COMPARISON: None. FINDINGS: Pes planus is noted. No fracture. There is moderate osteoarthritis of talonavicular joint a nd mild osteoarthritis of first metatarsophalangeal joint and some the interphalangeal joints and mid foot joints. There is an enthesophyte at plantar aspect of calcaneal tuberosity. IMPRESSION: 1. Polyarticular osteoarthritis. 2. Pes planus. Reviewed, dictated and finalized at location A.
--- NOTE | ~2021-10-27 | XR_ITS ---
EXAMINATION: XR_[id number]_CR DATE: 10/27/2021 13:12 INDICATION: Right foot pain. TECHNIQUE: 3 views of right foot were obtained. COMPARISON: None. FINDINGS: There is moderate hallux valgus. Pes planus is noted. No fracture. There is mild osteoarthr itis of first metatarsophalangeal joint and some of the midfoot joints and interphalangeal joints. Th ere is an enthesophyte at plantar aspect of calcaneal tuberosity. IMPRESSION: 1. Pes planus. 2. Moderate hallux valgus. 3. Mild polyarticular osteoarthritis. Reviewed, dictated and finalized at location A.
== END 2021-10-27 12:31 | disposition home or self-care (01) ==
PROVIDERS: PCP Family Medicine; Visit Provider Psychiatry & Neurology Neurology
DX: M79.671 Pain in right foot (principal); M79.672 Pain in left foot; G45.9 Transient cerebral ischemic attack, unspecified
CPT/HCPCS: 73630

== ENCOUNTER 2021-10-31 13:34 | Outpatient (CLI) | payer MEDICARE, OTHER, SELFPAY ==
--- NOTE | ~2021-10-31 | MM_ITS ---
EXAMINATION: MM screening zee BI w diana HISTORY: Screening mammogram TECHNIQUE: Craniocaudal and mediolateral oblique 3-D tomosynthesis images were obtained and synthetic 2-D images were generated. CAD analysis was submitted and interpreted. COMPARISON: 01/01/2019, 12/16/2008 BREAST PARENCHYMAL COMPOSITION: The breasts are almost entirely fatty. FINDINGS: There is no suspicious mass, calcification, or architectural distortion to suggest malignan cy in either breast. There has been no suspicious interval change. IMPRESSION: 1. No mammographic evidence of malignancy. 2. Recommend routine screening mammography in one year. BI-RADS Category 1: Negative Reviewed, dictated and finalized at location A.
--- NOTE | ~2021-10-31 | US_ITS ---
EXAMINATION: US carotid duplex BI DATE: 10/31/2021 14:58 INDICATION: TIA. TECHNIQUE: Grayscale, color Doppler, and pulsed Doppler images of the cervical carotid arteries were obtained. The degree of vessel stenosis is placed in one of the following categories: normal, <50%, 5 0-69%, >=70% but less than near-occlusion, near-occlusion, or total occlusion. Note that percent sten osis relative to normal distal artery lumen diameter is indirectly measured from velocity measurement s as described by Ifeanyi, et al. Radiology 2003; 229:340-346. Notes: Normal: Peak systolic velocity <125 centimeters/sec and no plaque <50%. Peak systolic velocity <125 ( EDV <40; ICA/CCA PSV ratio <2.0; used these factors only a tandem lesions or low cardiac output or co ntralateral disease) 50-69 %: PSV 125-230 (EDV 40-100; ratio 2-4) >= 70% but less than near occlusion: PSV greater than 230 (EDV > 100; ratio> 4.0) Near Occlusion: PSV that is variable; markedly narrowed lumen Occlusion: Absent flow on color/spectral Doppler and no lumen on muir scale. COMPARISON: None. FINDINGS: RIGHT: The right common carotid artery (CCA) peak systolic velocity (PSV) is 82 cm/s. The right internal car otid artery (ICA) PSV is 69 cm/s. The right ICA end-diastolic velocity (EDV) is 23 cm/s. The right IC A/CCA PSV ratio is 0.8. The external carotid artery (ECA) PSV is 72 cm/s. There is antegrade flow in the right vertebral artery. LEFT: The left CCA PSV is 61 cm/s. The left ICA PSV is 90 cm/s. The left ICA EDV is 32 cm/s. The left ICA/C CA PSV ratio is 1.5. The ECA PSV is 84 cm/s. There is antegrade flow in the left vertebral artery. IMPRESSION: 1. Less than 50% stenosis in the right internal carotid artery by sonographic criteria. 2. Less than 50% stenosis in the left internal carotid artery by sonographic criteria. Reviewed, dictated and finalized at location A. IMPRESSION: 1. Less than 50% stenosis in the right internal carotid artery by sonographic aris lopez. 2. Less than 50% stenosis in the left internal carotid artery by sonographic joseph richmond.
== END 2021-10-31 13:35 | disposition home or self-care (01) ==
LOC: CHSIMG 13:37
PROVIDERS: Visit Provider Psychiatry & Neurology Neurology
DX: G45.9 Transient cerebral ischemic attack, unspecified (principal); Z12.31 Encounter for screening mammogram for malignant neoplasm of breast
CPT/HCPCS: 77063; 77067; 93880

== ENCOUNTER 2022-03-29 11:43 | Outpatient (CLI) | payer MEDICARE, SELFPAY ==
[2022-03-29 12:07] LABS: Hematocrit 47.2 % (35.0-42.0); Hemoglobin 15.8 g/dL (11.7-13.8); Mean Corpuscular HGB Conc 33.5 g/dL (32.0-36.0); Mean Corpuscular Hemoglobin 32.1 pg (27.0-31.0); Mean Corpuscular Volume 95.9 fL (78.0-102.0); Mean Platelet Volume 10.1 fl (9.2-11.8); Platelet Count Result 272 K/mm3 (150-420); Red Blood Count 4.92 M/mm3 (4.20-5.40); Red Cell Distribution Width 12.7 % (11.6-14.4); White Blood Count 6.7 K/mm3 (4.8-10.8)
[2022-03-29 12:52] LABS: Alanine Aminotransferase 17 U/L (14-59); Albumin Level 3.8 g/dL (3.4-5.0); Alkaline Phosphatase 112 U/L (46-116); Anion Gap 8 mmol/L (8-16); Aspartate Amino Transferase 16 U/L (15-37); Bilirubin,Total 0.5 mg/dL (0.00-1.00); Blood Urea Nitrogen 12 mg/dL (7-18); Calcium 9.2 mg/dL (8.5-10.1); Carbon Dioxide 26 mmol/L (21-32); Chloride 102 mmol/L (98-108); Cholesterol 226 mg/dL (0-200); Estimated Glomerular Filt Rate > 60; Glucose 113 mg/dL (70-99); HDL Direct 51 mg/dL (40-60); LDL Cholesterol Calculated 147 mg/dL (<130); Osmolality Calculated 282 mOsm/kg (285-295); Potassium 4.3 mmol/L (3.5-5.1); Sodium 136 mmol/L (136-145); Thyroid Stimulating Hormone Reflex 1.51 u/IU/mL (0.36-3.74); Total Protein 7.3 g/dL (6.4-8.2); Triglycerides 140 mg/dL (0-150)
[2022-04-01 11:00] LABS: Vitamin D 25 Hydroxy 21 ng/mL (30-100)
[2022-04-01 19:12] LABS: Parathyroid Intact 122 pg/mL (14-64)
== END 2022-03-29 11:44 | disposition home or self-care (01) ==
LOC: CHSLAB 11:44
PROVIDERS: PCP Family Medicine; Visit Provider Family Medicine
DX: M19.90 Unspecified osteoarthritis, unspecified site (principal); G45.9 Transient cerebral ischemic attack, unspecified; E11.9 Type 2 diabetes mellitus without complications; M54.14 Radiculopathy, thoracic region; J44.9 Chronic obstructive pulmonary disease, unspecified; Z68.38 Body mass index [BMI] 38.0-38.9, adult
CPT/HCPCS: 36415; 80053; 80061; 82306; 83970; 84443; 85027

== ENCOUNTER 2022-05-17 15:38 | Outpatient (CLI) | payer MEDICARE, OTHER, SELFPAY ==
--- NOTE | ~2022-05-17 | XR_ITS ---
EXAMINATION: XR chest 2V DATE: 05/17/2022 17:02 INDICATION: Shortness of breath and wheezing TECHNIQUE: PA and lateral views of the chest are obtained. COMPARISON: 04/12/2021 FINDINGS: There are minimal airspace opacities of the lung bases. No pleural effusion or pneumothorax . The cardiomediastinal silhouette is normal. There is severe thoracic spondylosis. IMPRESSION: 1. Minimal airspace opacities of the lung bases, consistent with atelectasis versus pneumonia. Reviewed, dictated and finalized at location B. IMPRESSION: 1. Minimal airspace opacities of the lung bases, consistent with atelectasis ve rsus pneumonia.
[2022-05-17 16:59] LABS: Vitamin B12 424 pg/mL (193-986)
[2022-05-17 17:02] LABS: Folic Acid > 20.0 ng/mL (8.6->20)
[2022-05-18 17:18] LABS: Cholesterol 209 mg/dL (0-200); HDL Direct 66 mg/dL (40-60); LDL Cholesterol Calculated 124 mg/dL (<130); Triglycerides 95 mg/dL (0-150)
[2022-05-18 17:25] LABS: Alanine Aminotransferase 20 U/L (14-59); Albumin Level 3.9 g/dL (3.4-5.0); Alkaline Phosphatase 122 U/L (46-116); Anion Gap 11 mmol/L (8-16); Aspartate Amino Transferase 20 U/L (15-37); Bilirubin,Total 0.4 mg/dL (0.00-1.00); Blood Urea Nitrogen 18 mg/dL (7-18); Calcium 9.4 mg/dL (8.5-10.1); Carbon Dioxide 26 mmol/L (21-32); Chloride 106 mmol/L (98-108); Estimated Glomerular Filt Rate > 60; Glucose 101 mg/dL (70-99); Osmolality Calculated 297 mOsm/kg (285-295); Potassium 5.5 mmol/L (3.5-5.1); Sodium 143 mmol/L (136-145); Total Protein 7.4 g/dL (6.4-8.2)
== END 2022-05-17 15:39 | disposition home or self-care (01) ==
PROVIDERS: PCP Family Medicine; Visit Provider Nurse Practitioner Family
DX: G45.9 Transient cerebral ischemic attack, unspecified (principal); E55.9 Vitamin D deficiency, unspecified; R06.02 Shortness of breath; J44.9 Chronic obstructive pulmonary disease, unspecified; R53.83 Other fatigue; R91.8 Other nonspecific abnormal finding of lung field
CPT/HCPCS: 36415; 71046; 80053; 80061; 82607; 82746; 84443; 84590

== ENCOUNTER 2022-05-19 13:25 | Outpatient (CLI) | payer MEDICARE, OTHER, SELFPAY ==
[2022-05-19 13:48] LABS: Basophils Absolute Auto 0.05 K/mm3 (0.00-0.10); Basophils Percent Auto 0.8 % (0.0-1.0); Eosinophils Absolute Auto 0.28 K/mm3 (0.02-0.50); Eosinophils Percent Auto 4.6 % (1.0-6.0); Hematocrit 49.3 % (35.0-42.0); Hemoglobin 16.5 g/dL (11.7-13.8); Immature Granulocyte Absolute 0.01 K/mm3 (0.00-0.00); Immature Granulocyte Percent A 0.2 % (0.0-0.0); Lymphocytes Absolute Auto 1.35 K/mm3 (1.10-4.50); Lymphocytes Percent Auto 22.1 % (18.0-42.0); Mean Corpuscular HGB Conc 33.5 g/dL (32.0-36.0); Mean Corpuscular Hemoglobin 32.1 pg (27.0-31.0); Mean Corpuscular Volume 95.9 fL (78.0-102.0); Mean Platelet Volume 10.6 fl (9.2-11.8); Monocytes Absolute Auto 0.53 K/mm3 (0.10-0.90); Monocytes Percent Auto 8.7 % (2.0-11.0); Neutrophils Absolute Auto 3.9 K/mm3 (1.7-7.2); Neutrophils Percent Auto 63.6 % (50.0-70.0); Platelet Count Result 236 K/mm3 (150-420); Red Blood Count 5.14 M/mm3 (4.20-5.40); Red Cell Distribution Width 13.1 % (11.6-14.4); White Blood Count 6.1 K/mm3 (4.8-10.8)
[2022-05-19 13:50] LABS: Potassium 4.9 mmol/L (3.5-5.1)
--- NOTE | 2022-05-19 18:23 | ECG_ITS ---
Measurements Intervals [place] Rate: 96 P: VT: 0 QRS: 98 QRSD: 82 T: 16 QT: 338 QTc: 429 Interpretive Statements ATRIAL FIBRILLATION BASELINE ARTIFACT LOW QRS VOLTAGE IN PRECORDIAL LEADS ABNORMAL ECG COMPARED TO ECG 04/12/2021 19:31:21 ATRIAL FIBRILLATION NOW PRESENT Electronically Signed On 05-20-2022 13:34:50 CDT by Jeremy Raman M.D.
[2022-05-23 16:09] LABS: Parathyroid Intact 98 pg/mL (14-64)
[2022-05-23 19:22] LABS: Vitamin D 25 Hydroxy 20 ng/mL (30-100)
[2022-05-25 17:34] LABS: Vitamin A 51 mcg/dL (38-98)
== END 2022-05-19 13:26 | disposition home or self-care (01) ==
PROVIDERS: PCP Nurse Practitioner Family; Visit Provider Nurse Practitioner Family
DX: E55.9 Vitamin D deficiency, unspecified (principal); E87.5 Hyperkalemia; M54.14 Radiculopathy, thoracic region; R06.02 Shortness of breath; R94.31 Abnormal electrocardiogram [ECG] [EKG]; I48.91 Unspecified atrial fibrillation
CPT/HCPCS: 36415; 82306; 83970; 84132; 84590; 85025; 93005

== ENCOUNTER 2022-06-08 14:59 | Outpatient (CLI) | payer MEDICARE, SELFPAY ==
[2022-06-08 15:37] LABS: Strep Group A RT-PCR NOT DETECTED (Negative)
[2022-06-08 15:47] LABS: Influenza A QL RT-PCR Negative (Negative); Influenza B QL RT-PCR Negative (Negative); SARS-CoV-2 RNA PCR Negative (Negative)
== END 2022-06-08 15:00 | disposition home or self-care (01) ==
LOC: CHSLAB 15:01
PROVIDERS: PCP Nurse Practitioner Family; Visit Provider Nurse Practitioner Family
DX: J02.9 Acute pharyngitis, unspecified (principal); R53.83 Other fatigue
CPT/HCPCS: 87636; 87651

== ENCOUNTER 2022-07-18 17:30 | Outpatient (CLI) | payer MEDICARE, SELFPAY ==
[2022-07-18 18:22] LABS: Calcium 9.6 mg/dL (8.5-10.1)
[2022-07-22 20:52] LABS: Vitamin D 25 Hydroxy 32 ng/mL (30-100)
[2022-07-22 22:40] LABS: Parathyroid Intact 107 pg/mL (14-64)
== END 2022-07-18 17:31 | disposition home or self-care (01) ==
LOC: CHSLAB 17:32
PROVIDERS: PCP Nurse Practitioner Family; Visit Provider Nurse Practitioner Family
DX: E21.3 Hyperparathyroidism, unspecified (principal); E55.9 Vitamin D deficiency, unspecified
CPT/HCPCS: 36415; 82306; 82310; 83970

== ENCOUNTER 2022-08-06 15:36 | Outpatient (CLI) | payer MEDICARE, SELFPAY ==
[2022-08-06 16:15] LABS: Magnesium 1.8 mg/dL (1.8-2.4); Phosphorus 4.3 mg/dL (2.6-4.7)
== END 2022-08-06 15:37 | disposition home or self-care (01) ==
LOC: CHSLAB 15:41
PROVIDERS: PCP Nurse Practitioner Family; Visit Provider Internal Medicine
DX: E21.3 Hyperparathyroidism, unspecified (principal)
CPT/HCPCS: 36415; 83735; 84100

== ENCOUNTER 2022-08-13 12:06 | Outpatient (CLI) | payer MEDICARE, OTHER, SELFPAY ==
--- NOTE | ~2022-08-13 | US_ITS ---
Thyroid ultrasound. Clinical History: Hyperparathyroidism Findings: Real-time sonography of the thyroid gland was performed. The right lobe measures 3.8 x 2.0 x 2.2 cm. The left lobe measures 4.2 x 2.0 x 1.8 cm. The isthmus is 3 mm in AP diameter. At the left lower pole, there is a 1.3 cm round, hyperechoic mass. Impression: 1.3 cm hyperechoic solid nodule at the left lung base. No further follow-up required based on size cr iteria.. Reviewed, dictated and finalized at location M. Impression: 1.3 cm hyperechoic solid nodule at the left lung base. No further follow-up req uired based on size criteria..
== END 2022-08-13 12:07 | disposition home or self-care (01) ==
LOC: CHSIMG 12:07
PROVIDERS: PCP Nurse Practitioner Family; Visit Provider Internal Medicine
DX: E21.3 Hyperparathyroidism, unspecified (principal); E04.1 Nontoxic single thyroid nodule
CPT/HCPCS: 76536

== ENCOUNTER 2022-08-16 12:34 | Outpatient (CLI) | payer MEDICARE, OTHER, SELFPAY ==
--- NOTE | ~2022-08-16 | DEXA_ITS ---
Bone Density Report Name: ED SHEA Age: 72 Sex: Female Ethnicity: White Date of : 1950 Indication: postmenopausal; screening for osteoporosis; prior fracture; asthma or emphysema; hysterectomy; Referring Provider: HELEN SHI Study: Bone densitometry was performed. Exam Date: August 16, 2022 Accession number: [id number] Bone Density: Region BMD T-score Z-score Classification AP Spine(L1, L2, L3) 0.983 -0.3 1.7 Normal Femoral Neck (Left) 0.622 -2.0 -0.2 Osteopenia Total Hip (Left) 0.651 -2.4 -0.9 Osteopenia Femoral Neck (Right) 0.616 -2.1 -0.3 Osteopenia Total Hip (Right) 0.752 -1.6 -0.1 Osteopenia Femoral Neck Mean 0.619 -2.1 -0.3 Osteopenia Total Hip Mean 0.702 -2.0 -0.5 Osteopenia World Health Organization criteria for BMD impression classify patients as: Normal (T-score at or above -1.0), Osteopenia (T-score between -1.0 and -2.5), or Osteoporosis (T-score at or below -2.5). 10-year Fracture Risk(1): Major Osteoporotic Fracture 17% Hip Fracture 3.2% Reported Risk Factors: [place] (), Neck BMD=0.616, BMI=35.1, previous fracture (1) FRAX(R) Version 3.08. Fracture probability calculated for an untreated patient. Fracture probability may be lower if the patient has received treatment. Clinical Information Provided by Patient: Has had a low trauma fracture Has the following medical conditions: Asthma or Emphysema, Hysterectomy Patient maximum height was 63 Menopause Age: 47 No regular weight bearing exercise Does not regularly consume dairy products Onset of menses at age 14 Number of children 0 Impression: The patient has low bone mass, based on the Left Total Hip T-score. The patient has risk factors, including: previous fracture. Discussion: BONE DENSITY IS LOW AT ONE OR MORE SKELETAL SITES. This patient's lowest T-score is low at one or more skeletal sites. It meets the World Health Organization's (WHO) criteria for ?low bone mass? (T-score between -1.0 and -2.5). The patient's 10-year risk of fracture as calculated by FRAX is less than the threshold where pharmacological therapy is recommended by the National Osteoporosis Foundation (NOF). However, all treatment decisions require clinical judgment and consideration of individual patient factors, including patient preferences, comorbidities, previous drug use, risk factors not captured in the FRAX model (e.g., frailty, falls, vitamin D deficiency, increased bone turnover, interval significant decline in bone density) and possible under or overestimation of fracture risk by FRAX. The patient should follow a healthful lifestyle (good nutrition with adequate calcium and vitamin D, and appropriate weight-bearing exercise). Follow-Up: Consider repeating this study in 2 to 3 years to reasse
== END 2022-08-16 12:35 | disposition home or self-care (01) ==
LOC: CHSIMG 12:35
PROVIDERS: PCP Nurse Practitioner Family; Visit Provider Internal Medicine
DX: Z78.0 Asymptomatic menopausal state (principal); E21.3 Hyperparathyroidism, unspecified; M85.89 Other specified disorders of bone density and structure, multiple sites
CPT/HCPCS: 77080; 77081

== ENCOUNTER 2022-10-20 08:59 | Emergency (ER) | payer MEDICARE, OTHER, SELFPAY ==
--- NOTE | ~2022-10-20 | CT_ITS ---
EXAMINATION: CT abdomen pelvis wo con DATE: 10/20/2022 10:04 INDICATION: Left flank and pelvic pain for 5 hours TECHNIQUE: Computed tomography (CT) of the abdomen and pelvis was performed without intravenous contr ast. Automated exposure control and iterative reconstruction technique were employed. Exam dose: 122 4.75 mGy-cm total exam DLP. COMPARISON: 11/01/2020 CT abdomen pelvis FINDINGS: Mild bilateral lower lung atelectasis. Cardiomegaly. No pericardial or pleural effusion. Small sliding hiatal hernia. The liver, gallbladder, bile ducts, pancreas, pancreatic duct, spleen and adrenal glands are unremark able. There is an approximately 2 mm lower pole nonobstructing left renal calculus. No urinary tract calculus or hydroureteronephrosis. The urinary bladder and is unremarkable. Status post hysterectomy. Diverticulosis of the colon, particularly numerous in the sigmoid area; no CT evidence of diverticuli tis. No evidence of appendicitis. No bowel obstruction, bowel wall thickening, pneumatosis or intraperiton eal free air. There is atherosclerotic calcification but normal caliber of the abdominal aorta. No intraperitoneal or retroperitoneal or pelvic mass lesion or adenopathy or ascites. Small fat-containing umbilical hernia. Multilevel degenerative disc disease lower thoracic and lumbar spine, particularly severe in the lumb ar and lumbosacral area. Degenerative change at the apophyseal joints with associated minimal grade 1 anterolisthesis at L4-5. IMPRESSION: Small sliding hiatal hernia Pinpoint nonobstructing lower pole left renal calculus. No ureteral calculus or hydroureteronephrosis Status post hysterectomy Diverticulosis of the left colon; no evidence of diverticulitis Reviewed, dictated and finalized at [facility]. Reviewed, dictated and finalized at [facility].
[2022-10-20 08:59] VITALS: BP 154/105; PULSE 105; RESP 20; TEMP 36.4; O2SAT 98
[2022-10-20] MEDS: SODIUM CHLORIDE 0.9% IV 1,000 ML 999 ML IV CONT (09:36)
[2022-10-20] MEDS: ONDANSETRON INJ 4 MG/2 ML VIAL IV PUSH (09:37)
[2022-10-20] MEDS: MORPHINE SULFATE (*CRX) 4 MG/ML INJ IV PUSH (09:37)
[2022-10-20 09:45] LABS: Basophils Absolute Auto 0.06 K/mm3 (0.00-0.10); Basophils Percent Auto 0.5 % (0.0-1.0); Eosinophils Absolute Auto 0.06 K/mm3 (0.02-0.50); Eosinophils Percent Auto 0.5 % (1.0-6.0); Hematocrit 49.9 % (35.0-42.0); Hemoglobin 16.6 g/dL (11.7-13.8); Immature Granulocyte Absolute 0.04 K/mm3 (0.00-0.00); Immature Granulocyte Percent A 0.3 % (0.0-0.0); Lymphocytes Absolute Auto 0.77 K/mm3 (1.10-4.50); Lymphocytes Percent Auto 6.7 % (18.0-42.0); Mean Corpuscular HGB Conc 33.3 g/dL (32.0-36.0); Mean Corpuscular Hemoglobin 32.5 pg (27.0-31.0); Mean Corpuscular Volume 97.7 fL (78.0-102.0); Mean Platelet Volume 10.4 fl (9.2-11.8); Monocytes Absolute Auto 0.45 K/mm3 (0.10-0.90); Monocytes Percent Auto 3.9 % (2.0-11.0); Neutrophils Absolute Auto 10.1 K/mm3 (1.7-7.2); Neutrophils Percent Auto 88.1 % (50.0-70.0); Platelet Count Result 217 K/mm3 (150-420); Red Blood Count 5.11 M/mm3 (4.20-5.40); Red Cell Distribution Width 12.2 % (11.6-14.4); White Blood Count 11.5 K/mm3 (4.8-10.8)
[2022-10-20 09:46] LABS: Appearance Urine Clear (Clear); Bilirubin Urine Negative (Negative); Blood Urine 2+ (Negative); Color Urine Light Yellow (Yellow); Glucose Urine UA Negative (Negative); Ketones Urine Negative (Negative); Leukocyte Esterase Ur Negative LEU/UL (Negative); Nitrate Urine Negative (Negative); Protein Urine 1+ (Negative); Urobilinogen Urine 0.2 mg/dL (0.2-1.0)
[2022-10-20 10:01] LABS: Alanine Aminotransferase 14 U/L (14-59); Albumin Level 3.8 g/dL (3.4-5.0); Alkaline Phosphatase 113 U/L (46-116); Anion Gap 10 mmol/L (8-16); Aspartate Amino Transferase 19 U/L (15-37); Bilirubin,Total 0.6 mg/dL (0.00-1.00); Blood Urea Nitrogen 25 mg/dL (7-18); Calcium 9.8 mg/dL (8.5-10.1); Carbon Dioxide 24 mmol/L (21-32); Chloride 104 mmol/L (98-108); Estimated CRCL calculation 57 ml/min; Estimated Glomerular Filt Rate > 60; Glucose 152 mg/dL (70-99); Lipase 28 U/L (16-77); Osmolality Calculated 293 mOsm/kg (285-295); Potassium 4.5 mmol/L (3.5-5.1); Sodium 138 mmol/L (136-145); Total Protein 7.9 g/dL (6.4-8.2)
[2022-10-20 10:05] LABS: Add Urine Microscopic? YES; Bacteria Urine 1+ /hpf; Squamous Epithelial Cell Urine Few /hpf (Few); WBC Urine None seen /hpf (0-3)
[2022-10-20 10:06] LABS: Lactic Acid Reflex 2.4 mmol/L (0.4-2.0)
--- NOTE | 2022-10-20 10:25 | ED.BACK ---
HPI - Back Pain/Injury General Chief Complaint: Urogenital-Female Stated Complaint: abdominal pain Time Seen by Provider: 10/20/22 09:10 Source: patient Mode of arrival: ambulatory History of Present Illness HPI Narrative: 72-year-old female presents abdominal pain started in the left flank area and radiating into her left groin with some mild dysuria no hematuria no chills does have some nausea with no vomiting no fever chills, no diarrhea constipation no chest pain or shortness of breath. MD elicited complaint: back pain Onset (ago): hour(s) Timing: intermittent Severity: moderate Related Data Home Medications Medication Instructions Recorded Confirmed ropinirole 1 mg tablet 1 mg PO TID 07/20/22 Allergies Allergy/AdvReac Type Severity Reaction Status Date / Time tetracycline Allergy Intermediate Dyspnea / Verified 07/20/22 12:59 SOB NSAIDS (Non-Steroidal AdvReac Unknown Verified 07/20/22 12:59 Anti-Inflamma Review of Systems Review of Systems: All systems reviewed & are unremarkable except as noted in HPI and below PMFSH Past Medical History Medical History Arthritis COPD (chronic obstructive pulmonary disease) Thoracic radiculopathy Surgical History Surgical History History of tonsillectomy and adenoidectomy Social History Social History Smoking status: Former smoker Alcohol intake: former Substance use: never Exam Const: General: healthy appearing Nutritional Appearance: well nourished Orientation/consciousness: patient oriented x3 HENMT: Head: normal to inspection Neck: Neck: normal visual inspection Chest: Chest palpation & inspection: normal inspection of the chest Resp: Effort & Inspection: normal respiratory effort Auscultation: clear to auscultation bilaterally Cardio: Rate: regular rate Rhythm: regular rhythm GI: GI Palp: Yes Soft to palpation and Yes Tenderness to palpation present (GI) Auscultation: normal bowel sounds : General: Yes Bladder palpation abnormal and Yes CVA tenderness Urinary Catheter: Urinary Catheter: patent and draining Skin: General skin exam: normal color Rashes: no rashes Neuro: General: patient oriented x3 and moves all extremities Extrem: General: normal to inspection Course Course Emergency Course: After reassessment of patient patient states that her pain level has significantly improved with some IV morphine, nausea improved as well with Zofran blood work reviewed patient which showed a mildly elevated white count and a CT scan that shows a kidney stone nonobstructing and diverticulosis with no evidence of diverticulitis, UA performed shows that 1+ bacteria. Vital Signs Vital signs: Vital Signs Temperature 36.4 C 10/20/22 08:59 Pulse Rate 105 H 10/20/22 08:59 Respiratory Rate 20 10/20/22 08:59 Blood Pressure 154/105 H 10/20/22 08:59 Pulse Oximetry 98 10/20/22 08:59 Oxygen Delivery Room Air 10/20/22 08:59 Temperature 36.4 C 10/20/22 08:59 Pulse Rate 105 H 10/20/22 08:59 Respiratory Rate 20 10/20/22 08:59 Blood Pressure 154/105 H 10/20/22 08:59 Pulse Oximetry 98 10/20/22 08:59 Oxygen Delivery Room Air 10/20/22 08:59 MDM - Back Pain/Injury Lab Data 10/20/22 09:40 10/20/22 09:40 Labs: Lab Results 10/20/22 Range/Units 09:40 WBC 11.5 H (4.8-10.8) K/mm3 RBC 5.11 (4.20-5.40) M/mm3 Hgb 16.6 H (11.7-13.8) g/dL Hct 49.9 H (35.0-42.0) % MCV 97.7 (78.0-102.0) fL MCH 32.5 H (27.0-31.0) pg MCHC 33.3 (32.0-36.0) g/dL RDW 12.2 (11.6-14.4) % Plt Count 217 (150-420) K/mm3 MPV 10.4 (9.2-11.8) fl Immature Gran % (Auto) 0.3 H (0.0-0.0) % Neut % (Auto) 88.1 H (50.0-70.0) % Lymph % (Auto) 6.7 L (18.0-42.0) % [place] % (Auto) 3.9 (2.0-11.0) %
[2022-10-20 10:35] VITALS: BP 151/103; PULSE 94; RESP 18; TEMP 36.2; O2SAT 98
[2022-10-20 11:04] LABS: Reflex Lactic Acid Yes or No No Lactic Reflex
== END 2022-10-20 10:38 | disposition home or self-care (01) ==
PROVIDERS: Emergency Provider Emergency Medicine; PCP Nurse Practitioner Family
DX: N20.0 Calculus of kidney (principal); N39.0 Urinary tract infection, site not specified; J44.9 Chronic obstructive pulmonary disease, unspecified; Z87.891 Personal history of nicotine dependence
CPT/HCPCS: 36415; 74176; 80053; 81001; 83605; 83690; 85025; 96361; 96374; 96375; 99284; J2270; J2405; J7030

== ENCOUNTER 2022-10-23 11:42 | Outpatient (CLI) | payer MEDICARE, SELFPAY ==
[2022-10-23 12:00] LABS: Creatinine Urine 35.52 mg/dL (40-278)
[2022-10-23 12:07] LABS: Creatinine 24 Hour Urine 1.06 g/24 hr (0.60-1.80); Total Volume 24 Hour Urine 3000 ml
[2022-10-27 12:19] LABS: Total Volume 3000; Urine Calcium 6.9
== END 2022-10-23 11:43 | disposition home or self-care (01) ==
LOC: CHSLAB 11:45
PROVIDERS: PCP Nurse Practitioner Family; Visit Provider Internal Medicine
DX: E21.3 Hyperparathyroidism, unspecified (principal)
CPT/HCPCS: 81050; 82340; 82570

== ENCOUNTER 2022-10-24 16:41 | Outpatient (CLI) | payer MEDICARE, SELFPAY ==
[2022-10-24 17:32] LABS: Alanine Aminotransferase 19 U/L (14-59); Albumin Level 3.5 g/dL (3.4-5.0); Alkaline Phosphatase 112 U/L (46-116); Anion Gap 9 mmol/L (8-16); Aspartate Amino Transferase 18 U/L (15-37); Bilirubin,Total 0.6 mg/dL (0.00-1.00); Blood Urea Nitrogen 23 mg/dL (7-18); Calcium 9.3 mg/dL (8.5-10.1); Carbon Dioxide 25 mmol/L (21-32); Chloride 109 mmol/L (98-108); Estimated Glomerular Filt Rate > 60; Glucose 123 mg/dL (70-99); Osmolality Calculated 300 mOsm/kg (285-295); Potassium 5.1 mmol/L (3.5-5.1); Sodium 143 mmol/L (136-145); Total Protein 6.9 g/dL (6.4-8.2)
[2022-10-27 14:28] LABS: Vitamin D 25 Hydroxy 17 ng/mL (30-100)
[2022-10-27 19:52] LABS: Parathyroid Intact 110 pg/mL (14-64)
== END 2022-10-24 16:42 | disposition home or self-care (01) ==
LOC: CHSLAB 16:44
PROVIDERS: PCP Nurse Practitioner Family; Visit Provider Internal Medicine
DX: E21.0 Primary hyperparathyroidism (principal); Z86.39 Personal history of other endocrine, nutritional and metabolic disease
CPT/HCPCS: 36415; 80053; 82306; 83970

== ENCOUNTER 2022-12-03 10:04 | Outpatient (CLI) | payer MEDICARE, OTHER, SELFPAY ==
--- NOTE | ~2022-12-03 | CT_ITS ---
EXAMINATION: CT lung screening DATE: 12/03/2022 10:34 INDICATION: Personal history of nicotine dependence. Dyspnea with exertion. TECHNIQUE: Computed tomography (CT) of the chest was performed without intravenous contrast. The dose -length product was 202.61 mGy-cm. Automated exposure control and iterative reconstruction technique were employed. COMPARISON: None FINDINGS: Heart size normal. No significant thoracic lymphadenopathy. There is atherosclerosis of the aorta and coronary arteries. No significant pleural or pericardial effusion. There is nonsolid no en dobronchial lesions. No pneumothorax. Consolidation in the right lower lobe posterior medially with a ir bronchograms, measuring 2 x 1.5 cm. There are patchy groundglass opacities of the lower lobes. The re is a 7 mm left fissural nodule, image 57. IMPRESSION: 1. Lung-RADS category 3: Probably benign. Further evaluation is recommended with noncontrast low-dose chest CT in 6 months. Reviewed, dictated and finalized at location [facility]. IMPRESSION: 1. Lung-RADS category 3: Probably benign. Further evaluation is recommended wit h noncontrast low-dose chest CT in 6 months.
--- NOTE | 2022-12-03 10:11 | ECHO_ITS ---
Patient Info Name: Yolis Ontiveros Age: 72 years : 1950 Gender: Female Ht: 63 in Wt: 200 lbs BSA: 2.05 m2 HR: 99 bpm BP: 161 / 95 mmHg Heart Rhythm: Sinus Rhythm Technical Quality: Good Exam Date: 12/03/2022 10:18 AM Exam Location: [facility] Patient Status: Outpatient Admit Date: 12/03/2022 Staff Ordering Physician: Martínez Schwarz APRN Social Media Strategist: Liliya Hinojosa RDCS Attending Provider: Martínez Schwarz APRN Exam Type: CA echo doppler color flow Study Info Indications - pulmonary edema Complete two-dimensional, color flow and Doppler transthoracic echocardiogram is performed. Summary 1. Complete two-dimensional, color flow and Doppler transthoracic echocardiogram is performed. 2. Left ventricular chamber dimension is normal. 3. Left ventricular systolic function is normal, estimated at 60-65%. 4. The left ventricular diastolic function is abnormal. 5. E/e' 55 is significantly elevated. 6. Left atrial chamber dimension is moderately enlarged. 7. Right atrial chamber dimension is moderately enlarged. 8. There is moderate aortic valve sclerosis. 9. There is mild aortic valve regurgitation. 10. The mitral valve has mildly calcified leaflets and moderately calcified annulus. 11. There is mild mitral valve regurgitation. 12. There is moderate to severe tricuspid valve regurgitation. 13. Moderate pulmonary hypertension, estimated pulmonary arterial systolic pressure is 58 mmHg. Left Ventricle E/e' 55 is significantly elevated. Left ventricular chamber dimension is normal. Left ventricular systolic function is normal, estimated at 60-65%. The left ventricular diastolic function is abnormal. Right Ventricle Right ventricular systolic function is normal and with normal TAPSE 1.9 cm. Right ventricular chamber dimension is normal. Left Atria Left atrial chamber dimension is moderately enlarged. Right Atria Right atrial chamber dimension is moderately enlarged. Aortic Valve The aortic valve is trileaflet. There is moderate aortic valve sclerosis. There is no aortic valve stenosis. There is mild aortic valve regurgitation. Pulmonic Valve There is no pulmonic regurgitation. Mitral Valve The mitral valve has mildly calcified leaflets and moderately calcified annulus. There is no mitral valve stenosis. There is mild mitral valve regurgitation. Tricuspid Valve There is moderate to severe tricuspid valve regurgitation. Moderate pulmonary hypertension, estimated pulmonary arterial systolic pressure is 58 mmHg. Pericardium/Pleural There is no pericardial effusion. Inferior Vena Cava Normal inferior vena cava with >50% collapse upon inspiration consistent with normal right atrial pressure, 5 mmHg. Aorta The aortic root size at the sinus of Valsalva is normal. Left Ventricular Outflow Tract Name Value Normal LVOT 2D LVOT Diameter 1.9 cm LVOT Doppler LVOT Peak Velocity 101 cm/s LVOT Peak Gradient 4 mmHg LVOT Mean Gradient 2 mmHg LVOT VTI 30 cm LVOT VTI/AV VTI Ratio 0.9 LVOT Stroke Volume 89 ml Pulmonic Valv
== END 2022-12-03 10:05 | disposition home or self-care (01) ==
PROVIDERS: PCP Family Medicine; Visit Provider Nurse Practitioner Family
DX: I48.91 Unspecified atrial fibrillation (principal); J44.9 Chronic obstructive pulmonary disease, unspecified; R06.02 Shortness of breath; Z12.2 Encounter for screening for malignant neoplasm of respiratory organs; Z87.891 Personal history of nicotine dependence; I27.20 Pulmonary hypertension, unspecified; I08.3 Combined rheumatic disorders of mitral, aortic and tricuspid valves
CPT/HCPCS: 71271; 93306

== ENCOUNTER 2023-02-05 16:38 | Emergency (ER) | payer MEDICARE, OTHER, SELFPAY ==
[2023-02-05] VITALS (7 sets, daily range): BP systolic 142–174; BP diastolic 84–123; PULSE 78; RESP 18; TEMP 36.6; O2SAT 99
--- NOTE | 2023-02-05 16:43 | ED.GENADULT ---
HPI - General Adult General Chief complaint: Unspecified Stated complaint: blood pressure Time Seen by Provider: 02/05/23 16:40 Source: patient Mode of arrival: ambulatory Limitations: no limitations History of Present Illness HPI narrative: patient is a 72-year-old female watching her blood pressure increased over the past few days. She has been eating salty foods with the holidays as well as her dog dying in the last day. Her pressures are not very high but somewhat high at home. Specifically the diastolic. Patient is on hydrochlorothiazide 12.5 mg daily and took an extra 1 today with fairly good results. Patient came to the ER just because her pressures are somewhat high and has an appointment with her primary in the next 2 days. No chest pain or shortness of breath. Onset (ago): day(s) Severity: mild Relieving factors: none Exacerbating factors: none Associated symptoms: denies other symptoms Treatments prior to arrival: none Related Data Home Medications Medication Instructions Recorded Confirmed ropinirole 1 mg tablet 1 mg PO TID 07/20/22 02/05/23 Allergies Allergy/AdvReac Type Severity Reaction Status Date / Time tetracycline Allergy Intermediate Dyspnea / Verified 02/05/23 16:44 SOB NSAIDS (Non-Steroidal AdvReac Unknown Verified 02/05/23 16:44 Anti-Inflamma torsemide AdvReac Unknown Dyspnea / Uncoded 01/14/23 09:42 SOB Review of Systems Review of Systems: All systems reviewed & are unremarkable except as noted in HPI and below Constitutional: Constitutional: Reports no additional constitutional complaints Eyes: Eyes: Reports no additional eye complaints ENT: Reports system reviewed and no additional complaints, except as documented Cardiovascular: Cardiovascular: Reports no additional cardiovascular complaints Respiratory: Respiratory: Reports no additional respiratory complaints Gastrointestinal: Gastrointestinal: Reports no additional gastrointestinal complaints Genitourinary: Genitourinary: Reports no additional female genitourinary complaints Musculoskeletal: Musculoskeletal: Reports no additional musculoskeletal complaints Integumentary/Breasts: Skin/Breast: Reports system reviewed and no additional complaints, except as docu Neurologic: Reports system reviewed and no additional complaints, except as documented Psychiatric: Psychiatric: Reports no additional psychiatric complaints Endocrine: Endocrine: Reports no additional endocrine complaints Hematologic/Lymphatic: Hematologic/Lymphatic: Reports no additional hematologic/lymphatic complaints Allergic/Immunologic: Allergic/Immunologic: Reports no additional allergic/immunologic complaints PMFSH Past Medical History Medical History Arthritis COPD (chronic obstructive pulmonary disease) Thoracic radiculopathy Surgical History Surgical History History of tonsillectomy and adenoidectomy Social History Social History Smoking status: Former smoker Alcohol intake: former Substance use: never Lack of Transportation: No Lack of Food: Never True Current Housing: I Have Housing Concerned About Future Housing: No Difficulty Paying Gas/Electric Bills: Decline to Answer Difficulty Paying for Meds: No Currently Unemployed: No Education: Associate Degree Difficulty w/ Childcare or Family Care: No Exam Const: General: healthy appearing Nutritional Appearance: well nourished Orientation/consciousness: patient oriented x3 HENMT: Head: normal to inspection Ears: external ears normal Face/Nose/Sinus: Normal external nose present Eyes: Conjunctivae: conjunctivae normal Pupils: Equal, round and reactive pupils present EOM: EOMs intact bilaterally Neck: Neck: normal visual inspection Chest: Chest palpation & inspection: normal
--- NOTE | 2023-02-05 18:23 | PC.NURSE ---
PT CONTINUES TO BE ASYMPTOMATIC, TO RR X3 DURING ED VISIT. PT TO BE DC WITH FOLLOW UP SCHEDULED. NAD NOTED.
== END 2023-02-05 18:25 | disposition home or self-care (01) ==
LOC: CHSED 17:16
PROVIDERS: Emergency Provider Emergency Medicine; PCP Nurse Practitioner Family
DX: I10 Essential (primary) hypertension (principal); J44.9 Chronic obstructive pulmonary disease, unspecified; Z79.899 Other long term (current) drug therapy; Z87.891 Personal history of nicotine dependence
CPT/HCPCS: 99281

== ENCOUNTER 2023-02-15 15:03 | Outpatient (CLI) | payer MEDICARE, OTHER, SELFPAY ==
[2023-02-15 15:58] LABS: SARS-CoV-2 RNA PCR Negative (Negative)
[2023-02-15 16:00] LABS: Influenza A QL RT-PCR Negative (Negative); Influenza B QL RT-PCR Negative (Negative); RSV RNA, RT-PCR Negative (Negative)
== END 2023-02-15 15:04 | disposition home or self-care (01) ==
LOC: CHSLAB 15:06
PROVIDERS: PCP Nurse Practitioner Family; Visit Provider Nurse Practitioner Family
DX: R09.81 Nasal congestion (principal); J34.89 Other specified disorders of nose and nasal sinuses; R06.02 Shortness of breath
CPT/HCPCS: 87637

== ENCOUNTER 2023-05-29 18:10 | Outpatient (CLI) | payer MEDICARE, SELFPAY ==
[2023-05-29 19:01] LABS: Alanine Aminotransferase 21 U/L (14-59); Albumin Level 3.5 g/dL (3.4-5.0); Alkaline Phosphatase 94 U/L (46-116); Anion Gap 7 mmol/L (4-12); Aspartate Amino Transferase 24 U/L (15-37); Bilirubin,Total 0.9 mg/dL (0.00-1.00); Blood Urea Nitrogen 13 mg/dL (7-18); Calcium 8.8 mg/dL (8.5-10.1); Carbon Dioxide 29 mmol/L (21-32); Chloride 101 mmol/L (98-108); Estimated Glomerular Filt Rate 54; Glucose 106 mg/dL (70-99); Osmolality Calculated 284 mOsm/kg (285-295); Potassium 4.4 mmol/L (3.5-5.1); Sodium 137 mmol/L (136-145); Total Protein 7.7 g/dL (6.4-8.2)
[2023-05-30 09:17] LABS: Hemoglobin A1C 5.3 % (<5.7)
[2023-06-01 03:48] LABS: Vitamin D 25 Hydroxy 43 ng/mL (30-100)
[2023-06-11 16:23] LABS: Parathyroid Hormone Related Pr 10 pg/mL (11-20)
== END 2023-05-29 18:11 | disposition home or self-care (01) ==
LOC: CHSLAB 18:13
PROVIDERS: PCP Nurse Practitioner Family; Visit Provider Nurse Practitioner Family
DX: I10 Essential (primary) hypertension (principal); R60.0 Localized edema; E55.9 Vitamin D deficiency, unspecified; I48.91 Unspecified atrial fibrillation; R73.09 Other abnormal glucose
CPT/HCPCS: 36415; 80053; 82306; 83036; 83519

== ENCOUNTER 2023-05-31 14:22 | Outpatient (CLI) | payer MEDICARE, SELFPAY ==
[2023-05-31 14:58] LABS: Basophils Absolute Auto 0.07 K/mm3 (0.00-0.10); Basophils Percent Auto 1.2 % (0.0-1.0); Eosinophils Percent Auto 3.3 % (1.0-6.0); Hematocrit 48.5 % (35.0-42.0); Hemoglobin 16.2 g/dL (11.7-13.8); Immature Granulocyte Absolute 0.01 K/mm3 (0.00-0.00); Immature Granulocyte Percent A 0.2 % (0.0-0.0); Lymphocytes Absolute Auto 1.62 K/mm3 (1.10-4.50); Lymphocytes Percent Auto 26.7 % (18.0-42.0); Mean Corpuscular HGB Conc 33.4 g/dL (32-36); Mean Corpuscular Hemoglobin 31.8 pg (27.0-31.0); Mean Corpuscular Volume 95.3 fL (78.0-102.0); Mean Platelet Volume 10.7 fl (9.2-11.8); Monocytes Absolute Auto 0.67 K/mm3 (0.10-0.90); Monocytes Percent Auto 11.1 % (2.0-11.0); Neutrophils Absolute Auto 3.49 K/mm3 (1.70-7.20); Neutrophils Percent Auto 57.5 % (50.0-70.0); Platelet Count Result 223 K/mm3 (150-420); Red Blood Count 5.09 M/mm3 (4.20-5.40); Red Cell Distribution Width 12.3 % (11.6-14.4); White Blood Count 6.1 K/mm3 (4.8-10.8)
[2023-05-31 15:04] LABS: Appearance Urine Clear (Clear); Bilirubin Urine Negative (Negative); Blood Urine Negative (Negative); Color Urine Light Yellow (Yellow); Glucose Urine UA Negative (Negative); Ketones Urine Negative (Negative); Leukocyte Esterase Ur Negative (Negative); Nitrate Urine Negative (Negative); Protein Urine Negative (Negative); Specific Grav Ur 1.025 (1.010-1.020); Urobilinogen Urine 0.2 mg/dL (0.2-1.0); pH Urine 5.5 (5.0-8.0)
[2023-05-31 15:09] LABS: Add Urine Microscopic? NO
[2023-05-31 15:11] LABS: Uric Acid 8.7 mg/dL (2.6-6.0)
== END 2023-05-31 14:23 | disposition home or self-care (01) ==
LOC: CHSLAB 14:24
PROVIDERS: PCP Nurse Practitioner Family; Visit Provider Nurse Practitioner Family
DX: R35.0 Frequency of micturition (principal); M79.672 Pain in left foot; L08.9 Local infection of the skin and subcutaneous tissue, unspecified
CPT/HCPCS: 36415; 81003; 84550; 85025; 87086; 87088

== ENCOUNTER 2023-06-12 16:58 | Outpatient (CLI) | payer MEDICARE, SELFPAY ==
[2023-06-12 17:34] LABS: Uric Acid 7.4 mg/dL (2.6-6.0)
[2023-06-13 15:24] LABS: Parathyroid Intact 91 pg/mL (16-77)
== END 2023-06-12 16:59 | disposition home or self-care (01) ==
LOC: CHSLAB 17:00
PROVIDERS: PCP Nurse Practitioner Family; Visit Provider Nurse Practitioner Family
DX: M10.9 Gout, unspecified (principal); E21.0 Primary hyperparathyroidism
CPT/HCPCS: 36415; 83970; 84550

== ENCOUNTER 2023-08-22 13:39 | Outpatient (CLI) | payer MEDICARE, OTHER, SELFPAY ==
--- NOTE | ~2023-08-22 | CT_ITS ---
EXAMINATION:CT lung screening DATE: 08/22/2023 14:02 INDICATION: Lung nodule. TECHNIQUE: Computed tomography (CT) of the chest was performed without intravenous contrast. Automate d exposure control and iterative reconstruction technique were employed. The dose-length product (DLP ) was 184.98 mGy-cm. COMPARISON: Chest CT 12/03/2022 FINDINGS: The lungs demonstrate mild atelectasis. There is mild scarring in paraspinal right lower lo be. There is a stable 5 mm nodule at minor fissure. No pleural effusion. Cardiomegaly is noted. There are coronary artery calcifications. No pericardial effusion. There is severe thoracic spondylosis. T here is mild chronic anterior wedging of multiple vertebral bodies. IMPRESSION: 1. Lung-RADS category 2: Benign appearance or behavior. Continue annual screening with noncontrast lo w-dose chest CT in 12 months. Reviewed, dictated and finalized at location [facility]. IMPRESSION: 1. Lung-RADS category 2: Benign appearance or behavior. Continue annual screeni ng with noncontrast low-dose chest CT in 12 months.
== END 2023-08-22 13:40 | disposition home or self-care (01) ==
LOC: CHSIMG 13:40
PROVIDERS: PCP Nurse Practitioner Family; Visit Provider Nurse Practitioner Family
DX: R91.1 Solitary pulmonary nodule (principal); Z12.2 Encounter for screening for malignant neoplasm of respiratory organs; Z87.891 Personal history of nicotine dependence
CPT/HCPCS: 71271

== ENCOUNTER 2023-11-29 16:02 | Outpatient (CLI) | payer MEDICARE, SELFPAY ==
[2023-11-29 16:27] LABS: Add Urine Microscopic? NO; Appearance Urine Clear (Clear); Bilirubin Urine Negative (Negative); Blood Urine Negative (Negative); Color Urine Yellow (Yellow); Glucose Urine UA Negative (Negative); Ketones Urine Trace (Negative); Leukocyte Esterase Ur Negative LEU/UL (Negative); Nitrate Urine Negative (Negative); Protein Urine Negative (Negative); Specific Grav Ur 1.025 (1.010-1.020); Urobilinogen Urine 0.2 mg/dL (0.2-1.0)
[2023-11-29 16:27] LABS: Basophils Absolute Auto 0.05 K/mm3 (0.00-0.10); Basophils Percent Auto 0.8 % (0.0-1.0); Eosinophils Absolute Auto 0.16 K/mm3 (0.02-0.50); Eosinophils Percent Auto 2.5 % (1.0-6.0); Hematocrit 47.7 % (35.0-42.0); Immature Granulocyte Absolute 0.01 K/mm3 (0.00-0.00); Immature Granulocyte Percent A 0.2 % (0.0-0.0); Lymphocytes Absolute Auto 1.41 K/mm3 (1.10-4.50); Lymphocytes Percent Auto 21.8 % (18.0-42.0); Mean Corpuscular HGB Conc 33.5 g/dL (32-36); Mean Corpuscular Hemoglobin 32.1 pg (27.0-31.0); Mean Corpuscular Volume 95.8 fL (78.0-102.0); Mean Platelet Volume 10.6 fl (9.2-11.8); Monocytes Absolute Auto 0.61 K/mm3 (0.10-0.90); Monocytes Percent Auto 9.4 % (2.0-11.0); Neutrophils Absolute Auto 4.22 K/mm3 (1.70-7.20); Neutrophils Percent Auto 65.3 % (50.0-70.0); Platelet Count Result 235 K/mm3 (150-420); Red Blood Count 4.98 M/mm3 (4.20-5.40); Red Cell Distribution Width 12.5 % (11.6-14.4); White Blood Count 6.5 K/mm3 (4.8-10.8)
== END 2023-11-29 16:03 | disposition home or self-care (01) ==
PROVIDERS: PCP Nurse Practitioner Family; Visit Provider Nurse Practitioner Family
DX: R39.9 Unspecified symptoms and signs involving the genitourinary system (principal)
CPT/HCPCS: 36415; 81003; 85025

== ENCOUNTER 2024-03-04 15:21 | Outpatient (CLI) | payer MEDICARE, SELFPAY ==
[2024-03-04 15:36] LABS: Basophils Absolute Auto 0.06 K/mm3 (0.00-0.10); Basophils Percent Auto 0.9 % (0.0-1.0); Eosinophils Absolute Auto 0.15 K/mm3 (0.02-0.50); Eosinophils Percent Auto 2.2 % (1.0-6.0); Hematocrit 46.3 % (35.0-42.0); Hemoglobin 15.8 g/dL (11.7-13.8); Immature Granulocyte Absolute 0.02 K/mm3 (0.00-0.00); Immature Granulocyte Percent A 0.3 % (0.0-0.0); Lymphocytes Percent Auto 17.8 % (18.0-42.0); Mean Corpuscular HGB Conc 34.1 g/dL (32-36); Mean Corpuscular Hemoglobin 32.4 pg (27.0-31.0); Mean Corpuscular Volume 95.1 fL (78.0-102.0); Mean Platelet Volume 10.7 fl (9.2-11.8); Monocytes Absolute Auto 0.58 K/mm3 (0.10-0.90); Monocytes Percent Auto 8.6 % (2.0-11.0); Neutrophils Absolute Auto 4.72 K/mm3 (1.70-7.20); Neutrophils Percent Auto 70.2 % (50.0-70.0); Platelet Count Result 232 K/mm3 (150-420); Red Blood Count 4.87 M/mm3 (4.20-5.40); Red Cell Distribution Width 12.5 % (11.6-14.4); White Blood Count 6.7 K/mm3 (4.8-10.8)
[2024-03-04 16:20] LABS: Alanine Aminotransferase 22 U/L (14-59); Alkaline Phosphatase 94 U/L (46-116); Anion Gap 12 mmol/L (4-12); Aspartate Amino Transferase 18 U/L (15-37); Bilirubin,Total 0.6 mg/dL (0.00-1.00); Blood Urea Nitrogen 20 mg/dL (7-18); Calcium 10.1 mg/dL (8.5-10.1); Carbon Dioxide 26 mmol/L (21-32); Chloride 103 mmol/L (98-108); Estimated Glomerular Filt Rate 59; Glucose 112 mg/dL (70-99); Osmolality Calculated 295 mOsm/kg (285-295); Potassium 4.3 mmol/L (3.5-5.1); Sodium 141 mmol/L (136-145); Total Protein 7.4 g/dL (6.4-8.2)
[2024-03-05 07:48] LABS: Vitamin D 25 Hydroxy 42 ng/mL (30-100)
[2024-03-05 10:13] LABS: Ionized Calcium 5.6 mg/dL (4.7-5.5)
[2024-03-05 14:34] LABS: Parathyroid Intact 100 pg/mL (16-77)
== END 2024-03-04 15:22 | disposition home or self-care (01) ==
PROVIDERS: PCP Nurse Practitioner Family; Visit Provider Nurse Practitioner Family
DX: I10 Essential (primary) hypertension (principal); E87.5 Hyperkalemia; Z79.899 Other long term (current) drug therapy; E55.9 Vitamin D deficiency, unspecified; J44.9 Chronic obstructive pulmonary disease, unspecified; E21.3 Hyperparathyroidism, unspecified
CPT/HCPCS: 36415; 80053; 82306; 82330; 83970; 85025

== ENCOUNTER 2024-05-22 14:10 | Outpatient (CLI) | payer MEDICARE, SELFPAY ==
--- NOTE | ~2024-05-22 | XR_ITS ---
XR shoulder LT min 2V Ordering provider: Merlyn Lepe NP History: . M25.512 - Pain in left shoulder NKI wear and tear per patien . Comparison: None. FINDINGS: BONES: No acute fracture or dislocation. JOINT SPACES: The acromioclavicular joint is normal. The glenohumeral joint shows osteoarthritic stanley ges. SOFT TISSUES: Normal. IMPRESSION: No acute osseous abnormality left shoulder. Severe osteoarthritic changes of the left glenohumeral joint. Reviewed, dictated and finalized at location A.
--- OUTSIDE RECORDS SUMMARY | 2024-05-22 14:12 | XMS_ITS | Encounter Summary ---
Author Organization [facility] Address [address] [place] [address] Care Team Providers Care Corsetier Name Role Phone Tameka Wallace MD Primary Care Provider [phone] Vinayak Manzo MD Unavailable [phone] Encounter Details Date Type Department Care Team (Late st Contact Info) Description 06/03/2018 [facility] at [address] [address] Yulissa Cerda MA Social History Tobacco Use Types Packs/Day Years Used Date Smoking Tobacco: Every Day Cigarettes Smokeless Tobacco: Never Alcohol Use Standard Drinks/Week Comments No 0 (1 standard drink = 0.6 oz pur e alcohol) AUDIT-C Answer Date Recorded Frequency of Alcohol Consumption Never 05/30/2018 Average Number of Drinks Not on file 019 Frequency of Binge Drinking Not on file 05/12 Comments Unknown Sex and Gender Information Value Date Recorded Sex Assigned at Not on file Legal Sex Female 2:44 AM CDT Gender Identity Not on file Sexual Orientation Not on file documented as of this encounter Plan of Treatment Not on file documented as of this encounter Procedures Procedure Name Priority Date/Time Associated Diagnosis Comments CBC (OUTSIDE LAB) Routine 05/28/2018 COMPREHENSIVE METABOLIC PANEL Routine 05/28/2018 documented in this encounter Results * COMPREHENSIVE METABOLIC PANEL (05/28/2018) SODIUM S/P/B 138 POTASSIUM S/P/B 4.1 CO2 23 CHLORIDE S/P/B 104 GLUCOSE 113 mg/dL CALCIUM S/P/B 10.6 BUN 12 CREATININE S/P/B 0.70 0.5 - 1.0 EGFR NON-AFR. AMER. >60 <=90 ALKALINE PHOSPHATASE S/P/B 104 ALT 13 AST 19 BILIRUBIN TOTAL S/P/B 0.6 ALBUMIN S/P/B 4.7 3.5 - 5.0 TOTAL PROTEIN S/P/B 8.0 05/28/2018 [facility] Final Result * CBC (OUTSIDE LAB) (05/28/2018) WBC 8.5 HGB 16.7 HCT 48.7 PLT 252 05/28/2018 us Doc [facility]-OUTSIDE/ABSTRACTED Edite d Result - Final documented in this encounter Visit Diagnoses Not on filedocumented in this encounter Care Teams Corsetier Relationship Specialty Start Date End Date Tameka Wallace MD [address] [place] [address] PCP - General INTERNAL MEDICINE 02/21/18 Vinayak Manzo MD [facility]. [address] [place] [address] [facility] Occupational Therapist CARDIOVASCULAR DISEASE 05/29/18 documented as of this encounter
--- OUTSIDE RECORDS SUMMARY | 2024-05-22 14:12 | XMS_ITS | Clinical Summary ---
Author Organization [facility] [employer] Address [address] [place] [address] Care Team Providers Care Sheriff'S Officer Name Role Phone Unavailable Primary Care Provider Unavailabl e Source Comments [facility] [employer],non-owned Affiliates and Associated Physician Practices is amultiple site organization consisting of ambulatory clinics and hospital sitesin [place], [place], [place] and [place]. This disclosure is being madepursuant to the Care Everywhere program and may not contain all information available regarding this patient. Last updated 17.[facility] [employer] Social History Tobacco Use Types Packs/Day Years Used Date Smoking Tobacco: Never Assessed Sex and Gender Information Value Date Recorded Sex Assigned at Not on file Gender Identity Not on file Sexual Orientation Not on file Plan of Treatment Health Maintenance Due Date Last Done Comments COLOGUARD (AGES 45-75) - COL ON CA SCREENING 1950 COLON MONITORING 1950 COLONOSCOPY - COLON CA SCREENING 1950 CT COLONOGRAPHY - COLON CA SCREENING 1950 Colorectal Cancer Screening 1950 FIT - COLON CA SCREENING 1950 FLEX SIG - COLON CA SCREENING 1950 LIPID TESTING 1950 MAMMOGRAM 1950 MEDICARE AWV 12 MONTHS 1950 HEPATITIS C SCREENING 07/07/1970 DTAP/TDAP/TD VACCINES (1 - Tdap) 07/12/1971 PNEUMOCOCCAL VACCINE 50+ (1 of 1 - PCV) 2002 ZOSTER VACCINE (1 of 2) 2002 COVID-19 VACCINE ( - 2023-2 5 season) 2023 DEPRESSION SCREENING 02/12/2024 INFLUENZA VACCINE (Season Ended) 2024 Respiratory Syncytial Virus (RSV) Vaccine Pt: or over 60 yrs (1 - 1-dose 75+ series) 07/12/2027 BONE DENSITY TESTING Completed 03/24/2018 HEPATITIS B VACCINE Aged Out No longe r eligible based on patient's age to complete this topic HIB VACCINE Aged Out No longer eligi ble based on patient's age to complete this topic HPV VACCINE Aged Out No longer eligi ble based on patient's age to complete this topic MENINGOCOCCAL (Group B) VACC INE SHARED DECISION-MAKING Aged Out No longer eligibl e based on patient's age to complete this topic MENINGOCOCCAL GROUPS A/C/Y/W VACCINE Aged Out No longer eligible b ased on patient's age to complete this topic Procedures Procedure Name Priority Date/Time Associated Diagnosis Comments DEXA BONE DENSITY AXIAL SKELETON Routine 03/24/2018 5:58 PM SWITCH OPERATOR Sacroiliitis Psoriatic spondylitis from Last 3 Months or Most Recently Relevant to Health Maintenance Results * DEXA BONE DENSITY AXIAL SKELETON (03/24/2018 5:58 PM SWITCH OPERATOR) Anatomical Region Laterality Modality Mammography 03/25/2018 7:34 AM SWITCH OPERATOR Narrative 03/25/2018 7:35 AM SWITCH OPERATOR BONE MINERAL DENSITY STUDY INDICATION: Osteoporosis screening. Postmenopausal status FINDINGS: The average bone mineral density from L1 to L4 is0.871 g/cm2. The T-score is -2.6 and the Z-score is -1.6. The average bone mineral density of the totalmean hips is 0.721 g/cm2. The T-score is -2.3 and the Z-score is -1.5 . ASSESSMENT: Findings are consistent with osteoporosis. There is a significant increased fracture risk. WORLD HEALTH ORGANIZATION DEFINITIONS OSTEOPENIA = -1 to -2.5 SD BELOW T SCORE. OSTEOPOROSIS = Less than -2.5 SD BELOW T SCORE Reading Radiologist: Ijeoma Orozco MD on 03/25/2018 at 7:35 AM Procedure Note Ijeoma Orozco MD - 03/25/2018 BONE MINERAL DENSITY STUDY INDICATION: Osteoporosis screening. Postmenopausal status FINDINGS: The average bone mineral density from L1 to L4 is0.871 g/cm2. The T-score is -2.6 and the Z-score is -1.6. The average bone mineral density of the totalmean hips is 0.721 g/cm2. The T-score is -2.3 and the Z-score is -1.5 . ASSESSMENT: Findings are consistent with osteoporosis. There is a significant increased fracture risk. WORLD HEALTH ORGANIZATION DEFINITIONS OSTEOPENIA = -1 to -2.5 SD BELOW T SCORE. OSTEOPOROSIS = Less than -2.5 SD BELOW T SCORE Reading Radiologist: Ijeoma Orozco MD on 03/25/2018 at 7:35 AM Charles Albarran MD DEXA ORDERABLES from Last 3 Months or Most Recently Relevant to Health Maintenance
--- OUTSIDE RECORDS SUMMARY | 2024-05-22 14:13 | XMS_ITS | Clinical Summary ---
Author Organization [facility] Address [address] [place] [address] Care Team Providers Care Ferry Engineer Name Role Phone Tameka Wallace MD Primary Care Provider [phone] Vinayak Manzo MD Unavailable [phone] Allergies Active Allergy Reactions Criticality Noted Date Comments Ciprofloxacin Nausea and Vomiting 06/12/2018 Erythromycin Anaphylaxis High 05/14/2018 Ibuprofen Rash Low 05/30/2018 Tetracycline Shortness of Breath High 05/30/2018 Medications hydrocodone-catrina taminophen 10-325 MG tablet Take 1 tablet by mouth every 4 (four) hours as needed. 9 Active QUEtiapine 25 MG tablet Take 1 tablet by mouth nightly at bedtime. 9 Active albuterol sulfate HFA (VENTOLIN HFA) 108 (90 Base) MCG/ACT inhaler Inhale 2 puffs into the lungs daily. 8 Active celecoxib 200 MG capsule Take 200 mg by mouth 2 (two) times daily. 8 Active Senna 8.6 MG tablet Take 2 tablets (17.2 mg total) by mouth daily. 9 Active furosemide 40 MG tablet Take 1 tablet (40 mg total) by mouth daily. 30 tablet 5 9 Active Additional Information Patient taking differently:40 mg OralDAILY PRN, Reported on 05/17/2020 potassium chloride 20 MEQ packet Take 1 packet by mouth daily. 30 tablet 5 9 Active Additional Information Patient taking differently:20 mEq OralDAILY PRN, Reported on 05/17/2020 COMPRESSION STOCKINGS Knee-high stockings with 15-20 compression to wear during daytime hours removing nightly at bedtime. R60.9 Edema, Unspecified 2 Container 1 9 Active oxyCODONE-aceta minophen 10-325 MG tablet 9 Active amoxicillin 500 MG capsule 0 Active amoxicillin-cla vulanate 875-125 MG tablet 0 Active atorvastatin 20 MG tablet 1 Active clindamycin 300 MG capsule 0 Active Active Problems No known active problems Family History Medical History Relation Comments [place] Brother heart failure Father Heart Attack Maternal Grandmother Relation Status Comments Brother Father Maternal Grandmother Mother Social History Tobacco Use Types Packs/Day Years Used Date Smoking Tobacco: Every Day Cigarettes Smokeless Tobacco: Never Alcohol Use Standard Drinks/Week Comments No 0 (1 standard drink = 0.6 oz pur e alcohol) AUDIT-C Answer Date Recorded Frequency of Alcohol Consumption Never 05/30/2018 Average Number of Drinks Not on file 019 Frequency of Binge Drinking Not on file 05/12 PHQ-2 Answer Date Recorded PHQ-2 Score - If the patient scores above 3, please move on to questions 3-9 0 07/13/2020 Comments No Sex and Gender Information Value Date Recorded Sex Assigned at Not on file Legal Sex Female 2:44 AM CDT Gender Identity Not on file Sexual Orientation Not on file Occupation Industry Job Start Date Job End Date Not on file Not on file Not on file Not on file Last Filed Vital Signs Vital Sign Reading Time Taken Comments Blood Pressure 134/82 07/13/2020 2:56 PM CDT Pulse 75 07/13/2020 2:56 PM CDT Temperature 36.5 C (97.7 F) 07/13/2020 2:56 PM CDT Respiratory Rate 22 07/13/2020 2:56 PM CDT Oxygen Saturation 96% 07/13/2020 2:56 PM CDT Inhaled Oxygen Concentration - - Weight 104.3 kg (230 lb) 07/13/2020 2:56 PM CDT Height 160 cm (5' 3 ) 07/13/2020 2:56 PM CDT Body Mass Index 40.74 07/13/2020 2:56 PM CDT Plan of Treatment Health Maintenance Due Date Last Done Comments Colorectal Cancer Screening Colonoscopy (10 Years) 1952 Pneumococcal Vaccine: 65+ Years (1 of 2 - PCV) 1958 Hepatitis C 1970 DTaP, Tdap and Td Vaccines ( 1 - Tdap) 07/12/1971 Mammogram Screening 1992 Zoster Vaccines (1 of 2) 2002 Annual Medicare Wellness Visit 2017 Dexa Scan (General) 2017 COVID-19 Vaccine (3 - 2023-2 5 season) 2023 05/12/2020, 04/23/2020 RSV Immunization or 60+ Years (1 - 1-dose 75+ series) 07/12/2027 Meningococcal B Vaccine Aged Out No l onger eligible based on patient's age to complete this topic Meningococcal Vaccine Aged Out No bella delma eligible based on patient's age to complete this topic RSV Immunizations Under 20 Months Aged Out No longer eligible b ased on patient's age to complete this topic Insurance MEDICARE [facility] MEDICARE [facility] Care Teams Ferry Engineer Relationship Specialty Start Date End Date Tameka Wallace MD [address] [place] [address] PCP - General INTERNAL MEDICINE 02/21/18 Vinayak Manzo MD [facility]. [address] [address] Sharan Shingle Cutter CARDIOVASCULAR DISEASE 05/29/18
--- OUTSIDE RECORDS SUMMARY | 2024-05-22 14:13 | XMS_ITS | Data Portability ---
Author Organization [place] [facility] [employer] Main Office Address [address] [place] [address] Assessment No assessment recorded. Plan of Treatment Reminders Order Date Submit Date Provider Last Modified By Organization Details Last Modified Time Details Appointments None recorded. Lab None recorded. Referral None recorded. Procedures None recorded. Surgeries None recorded. Imaging audiogram + tympanogra m 2024 025 [facility] ([facility] Call Scheduling), [address] [place] [address], [address], 16:10:35 Medication Orders ciprofloxa gerri 0.3 %-dexameth asone 0.1 % ear drops,susp ension 2024 025 [facility], [address], [place], [id number], 5 16:03:40 Diflucan 150 mg tablet 2024 025 [facility], [address], [place], [id number], 5 16:03:41 Patient TargetsNo targets recorded. Patient Instructions Encounter Date Encounter Id Patient Instructions Last Modified By Organization Details Last Modified Time 05/19/2024 [id number] patient will hav e an audiogram and tympanogram completed. She will also have a CT of her temporal bones completed to rule out any anatomical causes. Advised to stop using the ofloxacin and prescribed Ciprodex for management. Advised to continue oral Augmentin as previously prescribed. Additionally prescribed a Diflucan tablet due to history of candidiasis with antibiotic use. We will follow up when we have the results of her audiogram and CT. [email or web address] Not available 05/20/2024 10:39:54 Reason for Referral None Reported. Problems Name Problem SNOMED Code Status Onset Date Resolution Date Notes Provider Name and Address Organization Details Recorded Time Dysfunction of left eustachian tube 3065049569716 106 Active 2024 Henrietta Duarte RN null, [facility] 16:01:30 Asymmetrica l sensorineur al hearing loss 638063660 Active 2024 Henrietta Duarte RN null, [facility] 16:01:56 Perforation of left tympanic membrane 7664851896326 103 Active 2024 CHRISTEN Monae [address] [facility] [address], [place], [address] [place] [address] 16:02:25 Problem Notes None recorded. Medical Equipment None Reported. Allergies Allergen ID Allergen Name Allergen Category Reaction Reaction Severity Criticality Documentation Date Start Date Code Code System Note Provider Name and Address Organization Details Recorded Time 66454 ibuprofen medicatio n Not available Not available Not available 05/19/2024 5640 RxNorm SNOW Pacheco, [facility] 15:24:53 86275 Non-stero idal anti-infl ammatory agent (product) medicatio n Not available Not available Not available 05/19/2024 24237 005 SNOMED SNOW Pacheco, [facility] 15:24:58 Medications Name Sig Start Date Stop Date Status Note LastModified by Organization Details LastModified Time Diflucan 150 mg tablet Take 1 tablet every day by oral route. 2024 active Not Available Not Available Not Avai lable ciprofloxacin 0.3 %-dexamethasone 0.1 % ear drops,suspensio n INSTILL 4 DROPS INTO LEFT EAR(S) BY OTIC ROUTE 2 TIMES PER DAY FOR 7 DAYS 2024 active Not Available Not Available Not Avai lable hydrochlorothia zide active Not Available Not Available Not Available Hydrocodone active Not Available Not A vailable Not Available Vitals Date Recorded Body height Body mass index (BMI) Body weight Body temperature Provider Name and Address Organization Details Last Updated DateTime 05/19/2024 160.02 cm 35.4 kg/m2 38979.47 g 97.6 [degF] SNOW Pacheco - [facility] [employer] [facility] 05/19/2024 15:29:32 Social History None recorded. Functional Status None recorded. Mental Status None recorded. Family History Nothing Reported Notes:BROTHER: SEVERE ALLERG IES Medical History Condition Response ENT Y Past Encounters Encounter ID Performer Location Encounter Start Date Encounter Closed Date Diagnosis/Indication Diagnosis SNOMED-CT Code Diagnosis ICD10 Code Diagnosis Note [id number] CHRISTEN Monae [facility] [place] [address] [place] [address] 05/19/2024 14:58:46 05/20/2024 10:40:30 Perforation of left tympanic membrane 9527924394 398826 H72.92 Health Concerns Section Related Observation LastModified by Organization Detai ls LastModified Time None Recorded Concern Status LastModified by Organization Details LastModified Time None Recorded Advance Directives Directive None Recorded Payers Encounter Date Sequence Insurance Name Policy Number Policy Pedraza Covered Member ID Pedraza Member ID Guarantor Name 05/19/2024 1 [place] Yolis Grey [id number] Yolis Grey 05/19/2024 2 [facility] (MEDICARE SUPPLEMENT) Yolis Tiffanie Ontiveros [id number] Yolis Grey Notes Date Note Type Note Provider Name and Address Organization Details Recorded Time 05/19/2024 text/html This patient has a past medical history significant for hyperparathyroidism , tympanic membrane perforation, and AFib who presents to the office with a complaint of left ear congestion and pressure with associated decreased hearing that began one-week ago. She states that her symptoms began after getting several teeth fillings completed. She notes that she does have a history with TMJ and had used a bite block during her filling procedure. She notes that on she was prescribed Augmentin and ofloxacin without symptom relief. She notes on Saturday she had complete hearing loss to the left ear. She has a history of 2-3 tympanic membrane ruptures on the affected ear. She states that she has not had a tympanic membrane rupture to the affected ear and approximately 30 years. She also notes associated tinnitus that is intermittent. Henrietta Arnold, CHRISTEN [address] [facility], [facility] [address], [place], [address], [place] [employer] [facility] 05/20/2024 10:39:57
== END 2024-05-22 14:11 | disposition home or self-care (01) ==
LOC: CHSIMG 14:11
PROVIDERS: PCP Nurse Practitioner Family; Visit Provider Nurse Practitioner Family
DX: M25.512 Pain in left shoulder (principal); M19.012 Primary osteoarthritis, left shoulder
CPT/HCPCS: 73030

== ENCOUNTER 2024-05-28 10:33 | Outpatient (CLI) | payer MEDICARE, SELFPAY ==
--- NOTE | ~2024-05-28 | CT_ITS ---
EXAMINATION: CT IAC/mastoids BI wo con DATE: 05/28/2024 11:06 INDICATION: Asymmetric left-sided sensorineural hearing loss TECHNIQUE: Computed tomography (CT) of the temporal bones was performed without intravenous contrast. The dose-length product was 267.75 mGy-cm. COMPARISON: None FINDINGS: RIGHT TEMPORAL BONE: The external auditory canal, tympanic membrane, ossicles and scutum are normal. The mastoid air cells , middle ear cavity including Prussak's space are clear. The oval window, vestibule, cochlea, semicir cular canals, internal auditory canal, vestibular aqueduct and course of the facial nerve are normal. No abnormal mass at the petrous apex. LEFT TEMPORAL BONE: The external auditory canal, tympanic membrane, ossicles and scutum are normal. The mastoid air cells , middle ear cavity including Prussak's space are clear. The oval window, vestibule, cochlea, semicir cular canals, internal auditory canal, vestibular aqueduct and course of the facial nerve are normal. No abnormal masses at the petrous apex. IMPRESSION: 1. Normal bilateral temporal bone CT Reviewed, dictated and finalized at location A.
--- OUTSIDE RECORDS SUMMARY | 2024-05-28 11:24 | XMS_ITS | Clinical Summary ---
Author Organization [facility] Address [address] [place] [address] Care Team Providers Care Electronic News Gathering Editor Name Role Phone Tameka Wallace MD Primary Care Provider [phone] Vinayak Manzo MD Unavailable [phone] Allergies Active Allergy Reactions Criticality Noted Date [...] problems Family History Medical History Relation Comments [place] Brother heart failure Father Heart Attack Maternal [...] Colorectal Cancer Screening Colonoscopy (10 Years) 1952 Hepatitis C 1970 DTaP, Tdap and Td Vaccines ( 1 - Tdap) 07/12/1971 Pneumococcal Vaccine: 50+ Years (1 of 2 - PCV) 07/12/1971 Mammogram Screening 1992 Zoster Vaccines (1 [...] age to complete this topic Insurance MEDICARE [place] [facility] [place] MEDICARE [facility] Care Teams Electronic News Gathering Editor Relationship Specialty Start Date End Date Tameka Wallace MD [address] [place] [address] PCP - General INTERNAL MEDICINE 02/21/18 Vinayak Manzo MD [facility]. [address] [address] Sharan Finisher [employer] CARDIOVASCULAR DISEASE 05/29/18
--- OUTSIDE RECORDS SUMMARY | 2024-05-28 11:24 | XMS_ITS | Data Portability ---
Author Organization [place] [facility] [employer] Main Office Address [address] [place] [address] Assessment No assessment recorded. Plan of Treatment Reminders Order Date Submit Date Provider Last Modified By Organization Details Last Modified Time Details Appointments None recorded. Lab None recorded. Referral None recorded. Procedures None recorded. Surgeries None recorded. Imaging audiogram + tympanogra m 2024 025 [facility] (One Call Scheduling), [address] [place] [address], [address], 16:10:35 Medication Orders ciprofloxa gerri 0.3 %-dexameth asone 0.1 % ear drops,susp ension 2024 025 [facility], [address], [place], [id number], 5 16:03:40 Diflucan 150 mg tablet 2024 025 [facility], [address], [place], [id number], 5 16:03:41 Patient TargetsNo targets recorded. Patient Instructions Encounter Date Encounter Id Patient Instructions Last Modified By Organization Details Last Modified Time 05/19/2024 [id number] patient will hav e an audiogram and [...] the results of her audiogram and CT. [email or web address] Not available 05/20/2024 10:39:54 Reason for Referral None Reported. Problems Name Problem SNOMED Code Status Onset Date Resolution Date Notes Provider Name and Address Organization Details Recorded Time Dysfunction of left eustachian tube 9371266913627 106 Active 2024 Henrietta Duarte RN null, [facility] 16:01:30 Asymmetrica l sensorineur al hearing loss 786993745 Active 2024 Henrietta Duarte RN null, [facility] 16:01:56 Perforation of left tympanic membrane 4915749415533 103 Active 2024 CHRISTEN Monae [address] [facility] [address], [place], [address] [place] [address] 16:02:25 Problem Notes None recorded. Medical Equipment None Reported. Allergies Allergen ID Allergen Name Allergen Category Reaction Reaction Severity Criticality Documentation Date Start Date Code Code System Note Provider Name and Address Organization Details Recorded Time 32344 ibuprofen medicatio n Not available Not available Not available 05/19/2024 5640 RxNorm SNOW Pacheco, [facility] 15:24:53 02833 Non-stero idal anti-infl ammatory agent (product) medicatio n Not available Not available Not available 05/19/2024 57226 005 SNOMED SNOW Pacheco, [facility] 15:24:58 Medications Name Sig Start Date [...] Updated DateTime 05/19/2024 160.02 cm 35.4 kg/m2 73259.47 g 97.6 [degF] SNOW Pacheco - [facility] [employer] [facility] 05/19/2024 15:29:32 Social History None recorded. Functional Status None recorded. Mental Status None recorded. Family History Nothing Reported Notes:BROTHER: SEVERE ALLERG IES Medical History Condition Response ENT Y Past Encounters Encounter ID Performer Location Encounter Start Date Encounter Closed Date Diagnosis/Indication Diagnosis SNOMED-CT Code Diagnosis ICD10 Code Diagnosis Note [id number] CHRISTEN Monae [facility] [place] [address] [place] [address] 05/19/2024 14:58:46 05/20/2024 10:40:30 Perforation of left tympanic membrane 1885629854 784707 H72.92 Health Concerns Section Related Observation LastModified by Organization Detai ls LastModified Time None Recorded Concern Status LastModified by Organization Details LastModified Time None Recorded Advance Directives Directive None Recorded Payers Encounter Date Sequence Insurance Name Policy Number Policy Pedraza Covered Member ID Pedraza Member ID Guarantor Name 05/19/2024 1 [place] Yolis Grey [id number] 2 Yolis Grey 05/19/2024 2 [facility] (MEDICARE SUPPLEMENT) Yolis Tiffanie Ontiveros [id number] Yolis Grey Notes Date Note Type Note [...] that is intermittent. Henrietta Arnold, CHRISTEN [address] [facility], [facility] [address], [place], [address], [place] [employer] [facility] 05/20/2024 10:39:57
--- OUTSIDE RECORDS SUMMARY | 2024-05-28 11:24 | XMS_ITS | Encounter Summary ---
Author Organization [facility] Address [address] [place] [address] Care Team Providers Care Nurse Plastics Name Role Phone Tameka Wallace MD Primary Care Provider [phone] Vinayak Manzo MD Unavailable [phone] Encounter Details Date Type Department Care Team (Late st Contact Info) Description 06/03/2018 [facility] at [address] [address] Yulissa Cerda MA Social History Tobacco Use [...] on filedocumented in this encounter Care Teams Nurse Plastics Relationship Specialty Start Date End Date Tameka Wallace MD [address] [place] [address] PCP - General INTERNAL MEDICINE 02/21/18 Vinayak Manzo MD [facility]. [address] [place] [address] [employer] Specialist CARDIOVASCULAR DISEASE 05/29/18 documented as of this encounter
--- OUTSIDE RECORDS SUMMARY | 2024-05-28 11:24 | XMS_ITS | Clinical Summary ---
Author Organization [facility] Address [address] [facility] [place] [address] Care Team Providers Care Radio Equipment Installer Name Role Phone Unavailable Primary Care Provider Unavailabl e Source Comments [facility],non-owned Affiliates and Associated Physician Practices is amultiple site organization consisting of ambulatory clinics and hospital sitesin [place], [place], [place] and [place]. This disclosure is being madepursuant to the Care Everywhere program and may not contain all information available regarding this patient. Last updated 17.[facility] Social History Tobacco Use Types Packs/Day Years Used Date Smoking Tobacco: Never Assessed Comments Unknown Sex and Gender Information Value Date Recorded Sex Assigned at Not on file Legal Sex Female 4:41 PM WAD LUBRICATOR Gender Identity Not on file Sexual Orientation [...] DENSITY AXIAL SKELETON Routine 03/24/2018 5:58 PM WAD LUBRICATOR Sacroiliitis Psoriatic spondylitis from Last 3 Months or Most Recently Relevant to Health Maintenance Results * DEXA BONE DENSITY AXIAL SKELETON (03/24/2018 5:58 PM WAD LUBRICATOR) Anatomical Region Laterality Modality Mammography 03/25/2018 7:34 AM WAD LUBRICATOR Narrative 03/25/2018 7:35 AM WAD LUBRICATOR BONE MINERAL DENSITY STUDY INDICATION: Osteoporosis screening. [...] -2.5 SD BELOW T SCORE Reading Radiologist: Ijemoa Orozco MD on 03/25/2018 at 7:35 AM [...] 7:35 AM Charles Albarran MD DEXA ORDERABLES Edited Result - Final from Last 3 Months or Most Recently Relevant to Health Maintenance Insurance MEDICARE
== END 2024-05-28 10:34 | disposition home or self-care (01) ==
PROVIDERS: PCP Nurse Practitioner Family; Visit Provider Nurse Practitioner Family
DX: H90.5 Unspecified sensorineural hearing loss (principal)
CPT/HCPCS: 70480

== ENCOUNTER 2024-06-05 14:04 | Outpatient (CLI) | payer MEDICARE, SELFPAY ==
--- OUTSIDE RECORDS SUMMARY | 2024-06-05 14:08 | XMS_ITS | Data Portability ---
Author Organization [place] [facility], Main Office Address [address] [place] [address] Assessment No assessment recorded. Plan of Treatment Reminders Order Date Submit Date Provider Last Modified By Organization Details Last Modified Time Details Appointments None recorded. Lab None recorded. Referral None recorded. Procedures None recorded. Surgeries None recorded. Imaging audiogram + tympanogram 2024 025 [facility] ([facility]), [address] [place], [address], 5 04:19:55 Medication Orders ciprofloxac in 0.3 %-dexametha sone 0.1 % ear drops,suspe nsion [address] [facility], [facility] [address] [place], [place], [id number], 5 16:03:40 Diflucan 150 mg tablet [address] [facility], [facility] [address] [place], [place], [id number], 5 16:03:41 Patient TargetsNo targets recorded. Patient Instructions Encounter Date Encounter Id Patient Instructions Last Modified By Organization Details Last Modified Time 05/19/2024 [id number] patient will hav e an audiogram and [...] the results of her audiogram and CT. [email or web address] Not available 05/20/2024 10:39:54 Reason for Referral None Reported. Results Created Date Observation Date Name Description Value Unit Range Abnormal Flag Note LastModifiedBy Organization Detail LastModifiedTime 05/30/1905/29/2024 CT, tempo ral bone, w/o contr ast No observ ation record ed. [facility] [address] [place], [address], 05/29/2024 12:15:17 06/06/1906/05/2024 CT, tempo ral bone, w/o contr ast No observ ation record ed. [facility] [address] [place], [address], 06/05/2024 13:08:24 Result Notes None recorded. Problems Name Problem SNOMED Code Status Onset Date Resolution Date Notes Provider Name and Address Organization Details Recorded Time Dysfunction of left eustachian tube 6180676556299 106 Active 2024 Henrietta Duarte RN null, [facility] [employer] 16:01:30 Asymmetrica l sensorineur al hearing loss 127008903 Active 2024 Henrietta Duarte RN null, [employer] [facility] 16:01:56 Perforation of left tympanic membrane 5654590400758 103 Active [address] [facility] [address], [place], [address] , [facility] [employer] [facility] 16:02:25 Problem Notes None recorded. Procedures Surgical History None recorded. Imaging Results Imaging Date Name Status LastModified by Organiz ation Details LastModified Time 05/29/2024 CT, temporal bone, w/o contrast completed [facility] [address] [place], [address], 05/29/2024 12:15:17 06/05/2024 CT, temporal bone, w/o contrast completed [facility] [address] [place], [address], 06/05/2024 13:08:24 Procedure Notes None recorded. Medical Equipment None Reported. Allergies Allergen ID Allergen Name Allergen Category Reaction Reaction Severity Criticality Documentation Date Start Date Code Code System Note Provider Name and Address Organization Details Recorded Time 18650 ibuprofen medicatio n Not available Not available Not available 05/19/2024 5640 RxNorm SNOW Pacheco, [facility] [employer] [facility] 15:24:53 32893 Non-stero idal anti-infl ammatory agent (product) medicatio n Not available Not available Not available 05/19/2024 92267 005 SNOMED SNOW Pacheco, [facility] [employer] [facility] 15:24:58 Medications Name Sig Start Date Stop [...] Updated DateTime 05/19/2024 160.02 cm 35.4 kg/m2 98837.47 g 97.6 [degF] Henrietta Duarte RN [facility] [employer] [facility] 05/19/2024 15:29:32 Social History None recorded. Functional Status None recorded. Mental Status None recorded. Family History Nothing Reported Notes:BROTHER: SEVERE ALLERG IES Medical History Condition Response ENT Y Past Encounters Encounter ID Performer Location Encounter Start Date Encounter Closed Date Diagnosis/Indication Diagnosis SNOMED-CT Code Diagnosis ICD10 Code Diagnosis Note [id number] CHRISTEN Monae [facility] Michael Richter [address] [place] [address] 05/19/2024 14:58:46 05/20/2024 10:40:30 Perforation of left tympanic membrane [id number] 602068 H72.92 Health Concerns Section Related Observation LastModified by Organization Detai ls LastModified Time None Recorded Concern Status LastModified by Organization Details LastModified Time None Recorded Advance Directives Directive None Recorded Payers Encounter Date Sequence Insurance Name Policy Number Policy Pedraza Covered Member ID Pedraza Member ID Guarantor Name 05/19/2024 1 [place] Yolis Grey [id number] Yolis Wardpabloedith 05/19/2024 2 [facility] (MEDICARE SUPPLEMENT) Yolis Wardzy [id number] Yolis Wardpabloedith Notes Date Note Type Note Provider Name [...] associated tinnitus that is intermittent. Henrietta Arnold, [facility] [address] [facility], [facility] [address], [place], [address], [facility] [employer] 05/20/2024 10:39:57
--- OUTSIDE RECORDS SUMMARY | 2024-06-05 14:08 | XMS_ITS | Encounter Summary ---
Author Organization [facility] Address [address] [place] [address] Care Team Providers Care Precipitator Supervisor Name Role Phone Tameka Wallace MD Primary Care Provider [phone] Vinayak Manzo MD Unavailable [phone] Encounter Details Date Type Department Care Team (Late st Contact Info) Description 06/03/2018 [facility] at [address] [address] Yulissa Cerda MA Social History Tobacco Use [...] on filedocumented in this encounter Care Teams Precipitator Supervisor Relationship Specialty Start Date End Date Tameka Wallace MD [address] [place] [address] PCP - General INTERNAL MEDICINE 02/21/18 Vinayak Manzo MD [address] [facility]. [address] [place] [address] [place] Mandarin Tutor CARDIOVASCULAR DISEASE 05/29/18 documented as of this encounter
--- OUTSIDE RECORDS SUMMARY | 2024-06-05 14:08 | XMS_ITS | Clinical Summary ---
Author Organization [facility] Address [address] [facility] [place] [address] Care Team Providers Care Supervisor Paper Machine Name Role Phone Unavailable Primary Care Provider Unavailabl e Source Comments [facility],non-owned Affiliates and Associated Physician Practices is amultiple site organization consisting of ambulatory clinics and hospital sitesin [place], [place], [place] and [place]. This disclosure is being madepursuant to the Care Everywhere program and may not contain all information available regarding this patient. Last updated 17.[facility] Social History Tobacco Use Types Packs/Day Years Used Date Smoking Tobacco: Never Assessed Comments Unknown Sex and Gender Information Value Date Recorded Sex Assigned at Not on file Legal Sex Female 4:41 PM INSULATION INSPECTOR Gender Identity Not on file Sexual Orientation [...] DENSITY AXIAL SKELETON Routine 03/24/2018 5:58 PM INSULATION INSPECTOR Sacroiliitis Psoriatic spondylitis from Last 3 Months or Most Recently Relevant to Health Maintenance Results * DEXA BONE DENSITY AXIAL SKELETON (03/24/2018 5:58 PM INSULATION INSPECTOR) Anatomical Region Laterality Modality Mammography 03/25/2018 7:34 AM INSULATION INSPECTOR Narrative 03/25/2018 7:35 AM INSULATION INSPECTOR BONE MINERAL DENSITY STUDY INDICATION: Osteoporosis screening. [...]
--- OUTSIDE RECORDS SUMMARY | 2024-06-05 14:09 | XMS_ITS | Clinical Summary ---
Author Organization [facility] Address [address] [place] [address] Care Team Providers Care Offal Trimmer Name Role Phone Tameka Wallace MD Primary Care Provider [phone] Vinayak Manzo MD Unavailable [phone] Allergies Active Allergy Reactions Criticality Noted Date [...] problems Family History Medical History Relation Comments [place] Brother heart failure Father Heart Attack Maternal [...] age to complete this topic Insurance MEDICARE [place] [facility] [place] MEDICARE [facility] Care Teams Offal Trimmer Relationship Specialty Start Date End Date Tmaeka Wallace MD [address] [place] [address] PCP - General INTERNAL MEDICINE 02/21/18 Vinayak Manzo MD [facility]. [address] [address] Sharan Cloth Handler CARDIOVASCULAR DISEASE 05/29/18
[2024-06-05 14:53] LABS: Alanine Aminotransferase 19 U/L (14-59); Albumin Level 3.9 g/dL (3.4-5.0); Alkaline Phosphatase 109 U/L (46-116); Anion Gap 8 mmol/L (4-12); Aspartate Amino Transferase 20 U/L (15-37); Bilirubin,Total 0.8 mg/dL (0.00-1.00); Blood Urea Nitrogen 27 mg/dL (7-18); Calcium 10.2 mg/dL (8.5-10.1); Carbon Dioxide 28 mmol/L (21-32); Chloride 104 mmol/L (98-108); Estimated Glomerular Filt Rate 51; Glucose 115 mg/dL (70-99); Osmolality Calculated 296 mOsm/kg (285-295); Sodium 140 mmol/L (136-145); Total Protein 7.9 g/dL (6.4-8.2)
== END 2024-06-05 14:05 | disposition home or self-care (01) ==
LOC: CHSLAB 14:06
PROVIDERS: PCP Nurse Practitioner Family; Visit Provider Nurse Practitioner Family
DX: Z86.39 Personal history of other endocrine, nutritional and metabolic disease (principal)
CPT/HCPCS: 36415; 80053

== ENCOUNTER 2024-06-05 14:22 | Outpatient (CLI) | payer MEDICARE, OTHER, SELFPAY ==
--- NOTE | 2024-06-05 14:28 | ECG_ITS ---
Test Date: 2024-06-05 14:42:36 Measurements Intervals [place] Rate: 83 P: 0 MA: 0 QRS: 92 QRSD: 80 T: 69 QT: 336 QTc: 397 Interpretive Statements ATRIAL FIBRILLATION RIGHT AXIS DEVIATION POSSIBLE RIGHT VENTRICULAR CONDUCTION DELAY BASELINE ARTIFACT- I, II, III, AVR, AVL, AVF, V1-V3 ABNORMAL ECG No previous ECG available for comparison Electronically Signed On 06-05-2024 15:16:11 CDT by Thad Wesley D.O.
== END 2024-06-05 14:23 | disposition home or self-care (01) ==
PROVIDERS: PCP Nurse Practitioner Family; Visit Provider Nurse Practitioner Family
DX: R07.89 Other chest pain (principal); I48.91 Unspecified atrial fibrillation; R94.31 Abnormal electrocardiogram [ECG] [EKG]
CPT/HCPCS: 93005

== ENCOUNTER 2024-07-22 16:00 | Outpatient (CLI) | payer MEDICARE, SELFPAY ==
[2024-07-22 16:29] LABS: Alanine Aminotransferase 17 U/L (6-35); Albumin Level 4.5 g/dL (3.5-5.1); Alkaline Phosphatase 101 U/L (38-126); Anion Gap 8 mmol/L (4-12); Aspartate Amino Transferase 26 U/L (14-36); Bilirubin,Total 0.6 mg/dL (0.2-1.3); Blood Urea Nitrogen 27 mg/dL (7-17); Calcium 9.9 mg/dL (8.4-10.2); Carbon Dioxide 26 mmol/L (22-30); Chloride 107 mmol/L (98-107); Estimated Glomerular Filt Rate > 60; Glucose 120 mg/dL (65-110); Osmolality Calculated 298 mOsm/kg (285-295); Potassium 4.8 mmol/L (3.4-5.0); Sodium 141 mmol/L (137-145); Total Protein 7.5 g/dL (6.3-8.2)
[2024-07-23 13:47] LABS: Parathyroid Intact 110 pg/mL (16-77)
== END 2024-07-22 16:01 | disposition home or self-care (01) ==
LOC: CHSLAB 16:03
PROVIDERS: PCP Nurse Practitioner Family; Visit Provider Nurse Practitioner Family
DX: E21.3 Hyperparathyroidism, unspecified (principal); R79.89 Other specified abnormal findings of blood chemistry
CPT/HCPCS: 36415; 80053; 83970

== ENCOUNTER 2024-07-27 11:42 | Outpatient (CLI) | payer MEDICARE, OTHER, SELFPAY ==
--- NOTE | 2024-07-27 12:02 | ECG_ITS ---
Test Date: 2024-07-27 12:09:08 Measurements Intervals [place] Rate: 107 P: 0 NV: 0 QRS: 128 QRSD: 88 T: 11 QT: 314 QTc: 419 Interpretive Statements ATRIAL FIBRILLATION WITH RAPID VENTRICULAR RESPONSE RIGHT AXIS DEVIATION POSSIBLE RIGHT VENTRICULAR CONDUCTION DELAY CONSIDER INFERIOR INFARCT, AGE INDETERMINATE BASELINE ARTIFACT- II, III, AVR, AVL,A VF, V1-V2 ABNORMAL ECG Compared to ECG 06/05/2024 14:42:36 HEART RATE HAS INCREASED Electronically Signed On 07-27-2024 12:58:18 CDT by Thad Wesley D.O.
[2024-07-27 12:39] LABS: Troponin I 0.015 ng/mL (0.000-0.034)
--- OUTSIDE RECORDS SUMMARY | 2024-07-27 12:57 | XMS_ITS | Clinical Summary ---
Author Organization [facility] Address [address] [place] [address] Care Team Providers Care Steel Erector Name Role Phone Tameka Wallace MD Primary Care Provider [phone] Vinayak Manzo MD Unavailable [phone] Allergies Active Allergy Reactions Criticality Noted Date [...] problems Family History Medical History Relation Comments [place] Brother heart failure Father Heart Attack Maternal [...] 2:56 PM CDT Height 160 cm (5' 3) 07/13/2020 2:56 PM CDT Body Mass Index [...] age to complete this topic Insurance MEDICARE [place] [facility] [place] MEDICARE [facility] Care Teams Steel Erector Relationship Specialty Start Date End Date Tameka Wallace MD [address] [place] [address] PCP - General INTERNAL MEDICINE 02/21/18 Vinayak Manzo MD [facility]. [address] [address] Sharan Regional Sales Engineer CARDIOVASCULAR DISEASE 05/29/18
--- OUTSIDE RECORDS SUMMARY | 2024-07-27 12:57 | XMS_ITS | Encounter Summary ---
Author Organization [facility] Address [address] [place] [address] Care Team Providers Care Bindery Leadperson Name Role Phone Tameka Wallace MD Primary Care Provider [phone] Vinayak Manzo MD Unavailable [phone] Encounter Details Date Type Department Care Team (Late st Contact Info) Description 06/03/2018 [facility] at [address] [address] Yulissa Cerda MA Social History Tobacco Use [...] on filedocumented in this encounter Care Teams Bindery Leadperson Relationship Specialty Start Date End Date Tameka Wallace MD [address] [place] [address] PCP - General INTERNAL MEDICINE 02/21/18 Vinayak Manzo MD Three [facility]. [address] [place] [address] [place] Automatic Fabric Cutter CARDIOVASCULAR DISEASE 05/29/18 documented as of this encounter
== END 2024-07-27 11:43 | disposition home or self-care (01) ==
PROVIDERS: PCP Nurse Practitioner Family; Visit Provider Nurse Practitioner Family
DX: I48.0 Paroxysmal atrial fibrillation (principal); R94.31 Abnormal electrocardiogram [ECG] [EKG]
CPT/HCPCS: 36415; 84484; 93005

== ENCOUNTER 2024-08-10 08:57 | Outpatient (CLI) | payer MEDICARE, OTHER, SELFPAY | END 2024-08-10 08:58 | disposition home or self-care (01) | LOC: CHSIMG 09:00 | PROVIDERS: PCP Nurse Practitioner Family; Visit Provider Nurse Practitioner Family | DX: I10 Essential (primary) hypertension (principal); I35.0 Nonrheumatic aortic (valve) stenosis; J44.9 Chronic obstructive pulmonary disease, unspecified | CPT/HCPCS: 99199 ==

== ENCOUNTER 2024-08-19 08:43 | Outpatient (CLI) | payer MEDICARE, OTHER, SELFPAY ==
--- NOTE | ~2024-08-19 | US_ITS ---
EXAMINATION: US aorta [facility] scr[facility] DATE: 08/20/2024 16:31 CDT INDICATION: Abdominal aortic aneurysm TECHNIQUE: Grayscale, color Doppler, and pulsed Doppler images of the aorta and common iliac arteries were obtained. COMPARISON: None. FINDINGS: The proximal aorta measures 1.5 cm The mid aorta measures 1.25 x 1.0 cm The distal aorta measures 1.0 x 0.8 cm The right common internal iliac artery measures 0.9 cm. The left common iliac artery measures 1.0 cm. IMPRESSION: No sonographic evidence of abdominal aortic aneurysm, as detailed above. Reviewed, dictated and finalized at location A.
--- OUTSIDE RECORDS SUMMARY | 2024-08-19 08:47 | XMS_ITS | Clinical Summary ---
Author Organization [facility] Address [address] [place] [address] Care Team Providers Care Ui Engineer Name Role Phone Tameka Wallace MD Primary Care Provider [phone] Vinayak Manzo MD Unavailable [phone] Allergies Active Allergy Reactions Criticality Noted Date [...] problems Family History Medical History Relation Comments [place] Brother heart failure Father Heart Attack Maternal [...] age to complete this topic Insurance MEDICARE [place] MEDICARE [facility] Care Teams Ui Engineer Relationship Specialty Start Date End Date Tameka Wallace MD [address] [place] [address] PCP - General INTERNAL MEDICINE 02/21/18 Vinayak Manzo MD [facility]. [address] [address] Sharan Manager Wound CARDIOVASCULAR DISEASE 05/29/18
--- OUTSIDE RECORDS SUMMARY | 2024-08-19 08:47 | XMS_ITS | Patient Health Record ---
Author Organization [facility] Address [address] [place], [place] [id number] Support Name Relationship Address Phone ED SHEA Guarantor Unknown [phone] Reason For Referral No Information Plan Of Treatment No Information Insurance Providers Payer Name Payer Address Payer Phone Subscriber Number Group Number Insured Name Patient Relationship to Insured Coverage Start Date Coverage End Date Medicare Part B [facility] [place] [address] [place] [phone] [id number] ED SHEA Self - patient is the insured [place] of [employer] [address] [place] [id number] ED SHEA Self - patient is the insured
--- OUTSIDE RECORDS SUMMARY | 2024-08-19 08:47 | XMS_ITS | Encounter Summary ---
Author Organization [facility] Address [address] [place] [address] Care Team Providers Care Ap Processor Name Role Phone Tameka Wallace MD Primary Care Provider [phone] Vinayak Manzo MD Unavailable [phone] Encounter Details Date Type Department Care Team (Late st Contact Info) Description 06/03/2018 [facility] at [address] [address] Yulissa Cerda MA Social History Tobacco Use [...] on filedocumented in this encounter Care Teams Ap Processor Relationship Specialty Start Date End Date Tameka Wallace MD [address] [place] [address] PCP - General INTERNAL MEDICINE 02/21/18 Vinayak Manzo MD Three [facility]. [address] [place] [address] [place] Tv Host CARDIOVASCULAR DISEASE 05/29/18 documented as of this encounter
== END 2024-08-19 08:44 | disposition home or self-care (01) ==
PROVIDERS: PCP Nurse Practitioner Family; Visit Provider Nurse Practitioner Family
DX: I10 Essential (primary) hypertension (principal); I35.0 Nonrheumatic aortic (valve) stenosis; J44.9 Chronic obstructive pulmonary disease, unspecified; I71.40 Abdominal aortic aneurysm, without rupture, unspecified
CPT/HCPCS: 76706

== ENCOUNTER 2024-08-24 08:44 | Outpatient (CLI) | payer MEDICARE, OTHER, SELFPAY ==
--- NOTE | ~2024-08-24 | CT_ITS ---
CT Scan of the Chest without Contrast: Clinical Indication: Lung cancer screening, nicotine dependence Technique: Contiguous sections were acquired throughout the chest without intravenous contrast. Dose reduction technique was used on this scan by utilizing automated exposure control and iterative recon struction technique. The dose-length product (DLP) was 233.22 mGy-cm. COMPARISON: 08/22/2023 Findings: There is no evidence of any significant mediastinal, hilar or axillary lymphadenopathy. Coronary jude ry calcifications are present. There is no evidence of pleural or pericardial effusion. Stable focal area of consolidation the medial right lower lobe (axial image 46). Images through the upper abdomen reveal no abnormalities. Impression: Lung RADS 2: Benign appearance. [address] advised. Reviewed, dictated and finalized at location . Impression: Lung RADS 2: Benign appearance. [address] advised.
--- NOTE | ~2024-08-24 | MM_ITS ---
EXAMINATION: MM screening [facility] BI w diana HISTORY: Screening TECHNIQUE: Craniocaudal and mediolateral oblique 3-D tomosynthesis images were obtained and synthetic 2-D images were generated. CAD analysis was submitted and interpreted. COMPARISON: Comparison to multiple prior studies sequentially, with oldest reviewed study dated 10/31. BREAST PARENCHYMAL COMPOSITION: Not Dense: The breasts are almost entirely fatty. FINDINGS: There is no evidence of suspicious mass, calcification, or architectural distortion to sugg est malignancy in either breast. There has been no suspicious interval change. IMPRESSION: 1. No mammographic evidence of malignancy. 2. Recommend routine screening mammography in one year. BI-RADS Category 1: Negative Reviewed, dictated and finalized at location B.
--- OUTSIDE RECORDS SUMMARY | 2024-08-24 08:53 | XMS_ITS | Patient Health Record ---
Author Organization [facility] Address [address] [place], [place] [id number] Support Name Relationship Address Phone ED SHEA Guarantor Unknown [phone] Reason For Referral No Information Plan Of Treatment No Information Insurance Providers Payer Name Payer Address Payer Phone Subscriber Number Group Number Insured Name Patient Relationship to Insured Coverage Start Date Coverage End Date Medicare Part B [facility] [address] [place] [address] [id number] ED SHEA Self - patient is the insured [place] of [employer] [address] [facility] [place] [id number] ED SHEA Self - patient is the insured
--- OUTSIDE RECORDS SUMMARY | 2024-08-24 08:53 | XMS_ITS | Encounter Summary ---
Author Organization [facility] Address [address] [place] [address] Care Team Providers Care Planting Material Carrier Name Role Phone Tameka Wallace MD Primary Care Provider [phone] Vinayak Manzo MD Unavailable [phone] Encounter Details Date Type Department Care Team (Late st Contact Info) Description 06/03/2018 [facility] at [address] [address] Yulissa Cerda MA Social History Tobacco Use [...] on filedocumented in this encounter Care Teams Planting Material Carrier Relationship Specialty Start Date End Date Tameka Wallace MD [address] [place] [address] PCP - General INTERNAL MEDICINE 02/21/18 Vinayak Manzo MD Three [facility]. [address] [place] [address] Hatch Assistant Women'S Rowing Coach CARDIOVASCULAR DISEASE 05/29/18 documented as of this encounter
--- OUTSIDE RECORDS SUMMARY | 2024-08-24 08:53 | XMS_ITS | Clinical Summary ---
Author Organization [facility] Address [address] [place] [address] Care Team Providers Care Cross Tie Tram Loader Name Role Phone Tameka Wallace MD Primary Care Provider [phone] Vinayak Manzo MD Unavailable [phone] Allergies Active Allergy Reactions Criticality Noted Date [...] problems Family History Medical History Relation Comments [place] Brother heart failure Father Heart Attack Maternal [...] age to complete this topic Insurance MEDICARE [place] MEDICARE [facility] Care Teams Cross Tie Tram Loader Relationship Specialty Start Date End Date Tameka Wallace MD [address] [place] [address] PCP - General INTERNAL MEDICINE 02/21/18 Vinayak Manzo MD [facility]. [address] [address] Sharan Sprinkler Installer CARDIOVASCULAR DISEASE 05/29/18
== END 2024-08-24 08:45 | disposition home or self-care (01) ==
LOC: CHSIMG 08:45
PROVIDERS: PCP Nurse Practitioner Family; Visit Provider Nurse Practitioner Family
DX: Z12.31 Encounter for screening mammogram for malignant neoplasm of breast (principal); F17.210 Nicotine dependence, cigarettes, uncomplicated; Z12.2 Encounter for screening for malignant neoplasm of respiratory organs
CPT/HCPCS: 71271; 77063; 77067

== ENCOUNTER 2024-11-23 13:45 | Outpatient (CLI) | payer MEDICARE, SELFPAY ==
[2024-11-23 14:15] LABS: Alanine Aminotransferase 17 U/L (6-35); Albumin Level 4.6 g/dL (3.5-5.1); Alkaline Phosphatase 97 U/L (38-126); Anion Gap 8 mmol/L (4-12); Aspartate Amino Transferase 29 U/L (14-36); Bilirubin,Total 0.7 mg/dL (0.2-1.3); Blood Urea Nitrogen 27 mg/dL (7-17); Calcium 10.8 mg/dL (8.4-10.2); Carbon Dioxide 28 mmol/L (22-30); Chloride 104 mmol/L (98-107); Estimated Glomerular Filt Rate 59; Glucose 113 mg/dL (65-110); Osmolality Calculated 296 mOsm/kg (285-295); Potassium 5.9 mmol/L (3.4-5.0); Sodium 140 mmol/L (137-145); Total Protein 9.3 g/dL (6.3-8.2)
--- OUTSIDE RECORDS SUMMARY | 2024-11-23 15:04 | XMS_ITS | Clinical Summary ---
Author Organization [facility] Address [address] [facility] [place] [address] Care Team Providers Care Lathe Sander Name Role Phone Unavailable Primary Care Provider Unavailabl e Source Comments [facility],non-owned Affiliates and Associated Physician Practices is amultiple site organization consisting of ambulatory clinics and hospital sitesin [place], [place], [place] and [place]. This disclosure is being madepursuant to the Care Everywhere program and may not contain all information available regarding this patient. Last updated 17.[facility] Social History Tobacco Use Types Packs/Day Years Used Date Smoking Tobacco: Never Assessed Comments Unknown Sex and Gender Information Value Date Recorded Sex Assigned at Not on file Legal Sex Female 4:41 PM INTERN BRAND Gender Identity Not on file Sexual Orientation [...] 2002 ZOSTER VACCINE (1 of 2) 2002 DEPRESSION SCREENING 02/12/2024 COVID-19 VACCINE (1 - 2023-2 5 season) 2024 INFLUENZA VACCINE (#1) 2024 Respiratory Syncytial Virus (RSV) Vaccine Pt: [...] DENSITY AXIAL SKELETON Routine 03/24/2018 5:58 PM INTERN BRAND Sacroiliitis Psoriatic spondylitis from Last 3 Months or Most Recently Relevant to Health Maintenance Results * DEXA BONE DENSITY AXIAL SKELETON (03/24/2018 5:58 PM INTERN BRAND) Anatomical Region Laterality Modality Mammography 03/25/2018 7:34 AM INTERN BRAND Narrative 03/25/2018 7:35 AM INTERN BRAND BONE MINERAL DENSITY STUDY INDICATION: Osteoporosis screening. [...]
--- OUTSIDE RECORDS SUMMARY | 2024-11-23 15:04 | XMS_ITS | Encounter Summary ---
Author Organization [facility] Address [address] [place] [address] Care Team Providers Care Lye Peel Operator Name Role Phone Vinayak Manzo MD Unavailable [phone] Martínez Schwarz Unavailable [phone] Dominik Dobbins MD Unavailable [phone] Encounter Details Date Type Department Care Team (Late st Contact Info) Description 06/03/2018 [facility] at [address] [id number] Yulissa Cerda MA Social History Tobacco Use [...] on filedocumented in this encounter Care Teams Lye Peel Operator Relationship Specialty Start Date End Date Vinayak Manzo MD [address] [address] [place] Decorator Lighting Fixtures CARDIOVASCULAR DISEASE 05/29/18 Martínez Schwarz FNP [address] [place] [phone] Nurse Practitioner Family 09/24/24 Dominik Dobbins MD [address] [place] [address] Consulting Physician CLINICAL CARDIAC ELECTROPHYSIOLOGY 09/28/24 documented as of this encounter
--- OUTSIDE RECORDS SUMMARY | 2024-11-23 15:04 | XMS_ITS | Clinical Summary ---
Author Organization [facility] Address [address] [place] [address] Care Team Providers Care Robotype Operator Name Role Phone Vinayak Manzo MD Unavailable [phone] Martínez Schwarz Unavailable [phone] Dominik Dobbins MD Unavailable [phone] Allergies Active Allergy Reactions Criticality Noted Date Comments Ciprofloxacin Nausea and Vomiting 06/12/2018 Erythromycin Anaphylaxis High 05/14/2018 Ibuprofen Rash Low 05/30/2018 Tetracycline Shortness of Breath High 05/30/2018 Torsemide Shortness of Breath High 09/28/2024 Medications hydrocodone-catrina taminophen 10-325 MG tablet Take [...] 5 9 Active Additional Information Patient taking differently: 20 mgOralDAILY PRN, Reported on 09/28/2024 potassium chloride 20 MEQ packet Take 1 [...] tablet 0 Active atorvastatin 20 MG tablet Take 1 tablet (20 mg total) by mouth daily. 1 Active clindamycin 300 MG capsule 0 Active rOPINIRole (REQUIP) 1 MG tablet Take 1 tablet (1 mg total) by mouth 3 (three) times daily. Active budesonide-glyc opyrrolate-form oterol (BREZTRI AEROSPHERE) 160-9-4.8 MCG/ACT inhaler Inhale 2 puffs into the lungs 2 (two) times daily. Active colchicine 0.6 MG tablet Take 1 tablet (0.6 mg total) by mouth daily as needed (gout). Active hydroCHLOROthia zide (MICROZIDE) 12.5 MG tablet Take 1 tablet (12.5 mg total) by mouth. Active aspirin EC 81 MG tablet Take 1 tablet (81 mg total) by mouth daily. Active Active Problems No known active problems Encounters Date Type Department Care Team Description 11/16/2024 Orders Only [facility] [address] [place] [address] Dominik Dobbins MD 09/28/2024 Abstract [facility] [address] [place] [address] Abstract, Doc Pccl 09/24/2024 Telephone [facility] [address] [place] [address] Cardiology, Physician Referral Request from Last 3 Months Family History Medical History Relation Comments [place] Brother heart failure Father Heart Attack Maternal Grandmother Relation Status Comments Brother Father Maternal Grandmother Mother Social History Tobacco Use Types Packs/Day Years Used Date Smoking Tobacco: Every Day Cigarettes Smokeless Tobacco: Never Tobacco Cessation:Ready to Q uit: Not Asked; Counseling Given: Not Answered Alcohol Use Standard Drinks/Week Comments No 0 [...] 1992 Zoster Vaccines (1 of 2) 2002 RSV Immunization or 60+ Years (1 - Risk 60-74 years 1-dose series) 2012 Annual Medicare Wellness Visit 2017 COVID-19 Vaccine (3 - 2024-2 6 season) 2024 05/12/2020, 04/23/2020 Influenza Adult (#1) 2024 Dexa Scan (General) Completed 03/24/2018, 03/24/2018 Meningococcal B Vaccine Aged Out No l onger eligible based on patient's age to complete this topic Meningococcal Vaccine Aged Out No bella delma eligible based on patient's age to complete this topic RSV Immunizations Under 20 Months Aged Out No longer eligible b ased on patient's age to complete this topic Insurance MEDICARE [facility] MEDICARE [facility] Care Teams Robotype Operator Relationship Specialty Start Date End Date Vinayak Manzo MD [address] [address] [place] Workplace Trainer And Assessor CARDIOVASCULAR DISEASE 05/29/18 Martínez Schwarz FNP [address] [place] [phone] Nurse Practitioner Family 09/24/24 Dominik Dobbins MD [address] [place] [address] Consulting Physician CLINICAL CARDIAC ELECTROPHYSIOLOGY 09/28/24
[2024-11-25 09:05] LABS: Parathyroid Intact 71.5 (7.5-53.5)
== END 2024-11-23 13:46 | disposition home or self-care (01) ==
LOC: CHSLAB 13:51
PROVIDERS: PCP Nurse Practitioner Family; Visit Provider Nurse Practitioner Family
DX: Z86.39 Personal history of other endocrine, nutritional and metabolic disease (principal); E21.3 Hyperparathyroidism, unspecified; E55.9 Vitamin D deficiency, unspecified
CPT/HCPCS: 36415; 80053; 82306; 83970

== ENCOUNTER 2024-12-15 15:28 | Outpatient (CLI) | payer MEDICARE, SELFPAY ==
[2024-12-15 15:44] LABS: Potassium 4.6 mmol/L (3.4-5.0)
[2024-12-15 16:21] LABS: Troponin I < 0.012 ng/mL (0.000-0.034)
--- OUTSIDE RECORDS SUMMARY | 2024-12-15 16:40 | XMS_ITS | Encounter Summary ---
Author Organization [facility] Address [address] [place] [address] Care Team Providers Care Music Mixer Name Role Phone Vinayak Manzo MD Unavailable [phone] Martínez Schwarz Unavailable [phone] Dominik Dobbins MD Unavailable [phone] Encounter Details Date Type Department Care Team (Late st Contact Info) Description 06/03/2018 Abstract [facility] at [address] [phone] Yulissa Cerda MA Social History Tobacco Use [...] on filedocumented in this encounter Care Teams Music Mixer Relationship Specialty Start Date End Date Vinayak Manzo MD [address] [address] [place] Travel Consultant CARDIOVASCULAR DISEASE 05/29/18 Martínez Schwarz FNP [address] [place] [phone] Nurse Practitioner Family 09/24/24 Dominik Dobbins MD [address] [place] [address] Consulting Physician CLINICAL CARDIAC ELECTROPHYSIOLOGY 09/28/24 documented as of this encounter
--- OUTSIDE RECORDS SUMMARY | 2024-12-15 16:40 | XMS_ITS | Clinical Summary ---
Author Organization [facility] Address [address] [place] [address] Care Team Providers Care Garage Manager Name Role Phone Vinayak Manzo MD Unavailable [phone] Martínez Schwarz Unavailable [phone] Dominik Dobbins MD Unavailable [phone] Allergies Active Allergy Reactions Criticality Noted Date [...] Department Care Team Description 11/16/2024 Orders Only [facility] [address] [place] [address] Dominik Dobbins MD 09/28/2024 Abstract [facility] [address] [place] [address] Abstract, Doc Pccl 09/24/2024 Telephone [facility] [address] [place] [address] Cardiology, Physician Referral Request from Last 3 Months Family History Medical History Relation Comments [place] Brother heart failure Father Heart Attack Maternal [...] 2) 2002 Annual Medicare Wellness Visit 2017 COVID-19 Vaccine (3 - 2024-2 6 season) 2024 05/12/2020, 04/23/2020 Influenza Adult (#1) 2024 RSV Immunization or 60+ Years (1 - 1-dose 75+ series) 07/12/2027 Dexa Scan (General) Completed 03/24/2018, 03/24/2018 Hepatitis A Vaccines Aged Out No long er eligible based on patient's age to complete this topic Meningococcal B Vaccine Aged Out No l onger eligible based on patient's age to complete this topic Meningococcal Vaccine Aged Out No bella delma eligible based on patient's age to complete this topic RSV Immunizations Under 20 Months Aged Out No longer eligible b ased on patient's age to complete this topic Insurance MEDICARE [facility] MEDICARE [facility] Care Teams Garage Manager Relationship Specialty Start Date End Date Vinayak Manzo MD [facility]. [address] [address] [place] Adjunct Teacher CARDIOVASCULAR DISEASE 05/29/18 Martínez Schwarz FNP [address] [place] [phone] Nurse Practitioner Family 09/24/24 Dominik Dobbins MD [address] [place] [address] Consulting Physician CLINICAL CARDIAC ELECTROPHYSIOLOGY 09/28/24
--- OUTSIDE RECORDS SUMMARY | 2024-12-15 16:40 | XMS_ITS | Clinical Summary ---
Author Organization [facility] Address [address] [place] [address] Care Team Providers Care Geology Professor Name Role Phone Unavailable Primary Care Provider Unavailabl e Source Comments [facility],non-owned Affiliates and Associated Physician Practices is amultiple site organization consisting of ambulatory clinics and hospital sitesin [place], [place], [place] and [place]. This disclosure is being madepursuant to the Care Everywhere program and may not contain all information available regarding this patient. Last updated 17.[facility] Social History Tobacco Use Types Packs/Day Years Used Date Smoking Tobacco: Never Assessed Comments Unknown Sex and Gender Information Value Date Recorded Sex Assigned at Not on file Legal Sex Female 4:41 PM TITLE SUPERVISOR Gender Identity Not on file Sexual Orientation [...] DENSITY AXIAL SKELETON Routine 03/24/2018 5:58 PM TITLE SUPERVISOR Sacroiliitis Psoriatic spondylitis from Last 3 Months or Most Recently Relevant to Health Maintenance Results * DEXA BONE DENSITY AXIAL SKELETON (03/24/2018 5:58 PM TITLE SUPERVISOR) Anatomical Region Laterality Modality Mammography 03/25/2018 7:34 AM TITLE SUPERVISOR Narrative 03/25/2018 7:35 AM TITLE SUPERVISOR BONE MINERAL DENSITY STUDY INDICATION: Osteoporosis screening. [...]
== END 2024-12-15 15:29 | disposition home or self-care (01) ==
LOC: CHSLAB 15:29
PROVIDERS: PCP Nurse Practitioner Family; Visit Provider Nurse Practitioner Family
DX: R94.31 Abnormal electrocardiogram [ECG] [EKG] (principal); E87.5 Hyperkalemia
CPT/HCPCS: 36415; 84132; 84484

== ENCOUNTER 2025-01-03 04:20 | Emergency (ER) | payer MEDICARE, OTHER, SELFPAY ==
[2025-01-03 04:23] VITALS: BP 169/105; PULSE 67; RESP 16; TEMP 36.1; O2SAT 93
--- OUTSIDE RECORDS SUMMARY | 2025-01-03 04:24 | XMS_ITS | Clinical Summary ---
Author Organization [facility] Address [address] [facility] [place] [address] Care Team Providers Care Dry Cleaning Counter Clerk Name Role Phone Unavailable Primary Care Provider Unavailabl e Source Comments [facility],non-owned Affiliates and Associated Physician Practices is amultiple site organization consisting of ambulatory clinics and hospital sitesin [place], [place], [place] and [place]. This disclosure is being madepursuant to the Care Everywhere program and may not contain all information available regarding this patient. Last updated 17.[facility] Social History Tobacco Use Types Packs/Day Years Used Date Smoking Tobacco: Never Assessed Comments Unknown Sex and Gender Information Value Date Recorded Sex Assigned at Not on file Legal Sex Female 4:41 PM SCAGLIOLA MECHANIC Gender Identity Not on file Sexual Orientation [...] DEPRESSION SCREENING 02/12/2024 COVID-19 VACCINE (1 - 2024-2 6 season) 2024 INFLUENZA VACCINE (#1) 2024 Respiratory [...] DENSITY AXIAL SKELETON Routine 03/24/2018 5:58 PM SCAGLIOLA MECHANIC Sacroiliitis Psoriatic spondylitis from Last 3 Months or Most Recently Relevant to Health Maintenance Results * DEXA BONE DENSITY AXIAL SKELETON (03/24/2018 5:58 PM SCAGLIOLA MECHANIC) Anatomical Region Laterality Modality Mammography 03/25/2018 7:34 AM SCAGLIOLA MECHANIC Narrative 03/25/2018 7:35 AM SCAGLIOLA MECHANIC BONE MINERAL DENSITY STUDY INDICATION: Osteoporosis screening. [...]
--- OUTSIDE RECORDS SUMMARY | 2025-01-03 04:24 | XMS_ITS | Encounter Summary ---
Author Organization [facility] Address [address] [place] [address] Care Team Providers Care Canoe Inspector Final Name Role Phone Vinayak Manzo MD Unavailable [phone] Martínez Schwarz Unavailable [phone] Dominik Dobbins MD Unavailable [phone] Encounter Details Date Type Department Care Team (Late st Contact Info) Description 06/03/2018 Abstract [facility] at [address] [phone] Yulissa Cerda MA Social History Tobacco Use [...] on filedocumented in this encounter Care Teams Canoe Inspector Final Relationship Specialty Start Date End Date Vinayak Manzo MD [address] [address] Girdler Die Maker CARDIOVASCULAR DISEASE 05/29/18 Martínez Schwarz FNP [address] [place] [phone] Nurse Practitioner Family 09/24/24 Dominik Dobbins MD [address] [place] [address] Consulting Physician CLINICAL CARDIAC ELECTROPHYSIOLOGY 09/28/24 documented as of this encounter
--- OUTSIDE RECORDS SUMMARY | 2025-01-03 04:24 | XMS_ITS | Clinical Summary ---
Author Organization [facility] Address [address] [place] [address] Care Team Providers Care Loss Prevention Operations Manager Name Role Phone Vinayak Manzo MD Unavailable [phone] Martínez Schwarz Unavailable Dominik Dobbins MD Unavailable [phone] Allergies Active Allergy Reactions Criticality Noted Date [...] Department Care Team Description 11/16/2024 Orders Only [facility] [address] [place] [address] Dominik Dobbins MD from Last 3 Months Family History Medical History Relation Comments [place] Brother heart failure Father Heart Attack Maternal [...] age to complete this topic Insurance MEDICARE Member Subscriber Plan / Payer (Ef fective 2017-Present) Name:Yolis Ontiveros Relation to Subscriber:Self Name:Yolis Ontiveros Payer ID:Not on file Group ID:Not on file Type:[employer] Address: ATTN CLAIMS [address] [place], [place] [phone] [place] [address] MEDICARE [facility] Care Teams Loss Prevention Operations Manager Relationship Specialty Start Date End Date Vinayak Manzo MD [facility]. [address] [address] [place] [employer] CARDIOVASCULAR DISEASE 05/29/18 Martínez Schwarz FNP [address] [place] [phone] Nurse Practitioner Family 09/24/24 Dominik Dobbins MD [address] [place] [phone] Consulting Physician CLINICAL CARDIAC ELECTROPHYSIOLOGY 09/28/24
[2025-01-03 04:44] VITALS: BP 148/92
--- NOTE | 2025-01-03 04:48 | ED.ANXIETY ---
HPI - Anxiety General Chief Complaint: Anxiety Stated Complaint: not feeling well Source: patient Mode of arrival: wheelchair Limitations: no limitations History of Present Illness HPI narrative: This is a 74-year-old female with history of atrial fibrillation hypertension presents after she witnessed a earlier this morning close friend of hers and EMS was called to the scene and found that she had increased blood pressure increased heart rate and they recommend that she present to the emergency department currently the patient is anxious after witnessing a friend that . Patient has no chest pain no shortness of breath no palpitations no nausea vomiting no abdominal pain. complaint: anxiety Onset (ago): hour(s) Severity: mild Quality: improving Place: home Provoking factors: emotional stress Related Data Home Medications ?Medication ?Instructions ?Recorded ?Confirmed ?Last Taken ?Type ropinirole 1 mg tablet 1 mg PO TID 07/20/22 12/15/24 Unknown History celecoxib 200 mg capsule (Celebrex) 200 mg PO BID 03/18/23 12/15/24 Unknown History hydrocodone 10 mg-acetaminophen 1 tablet PO QID PRN 03/18/23 12/15/24 Unknown History 325 mg tablet budesonide 160 mcg-glycopyr 9 2 inh inhalation BID 03/04/24 12/15/24 Unknown History mcg-formot 4.8 mcg/actuation HFA inhaler (Breztri Aerosphere) aspirin 81 mg tablet,delayed 81 mg PO DAILY 07/24/24 12/15/24 Unknown History release (Adult Aspirin Regimen) Allergies Allergy/AdvReac Type Severity Reaction Status Date / Time tetracycline Allergy Intermediate Dyspnea / Verified 12/15/24 14:34 SOB NSAIDS (Non-Steroidal AdvReac Unknown Verified 12/15/24 14:34 Anti-Inflamma torsemide AdvReac Unknown Dyspnea / Uncoded 12/15/24 14:34 SOB Review of Systems Review of Systems: All systems reviewed & are unremarkable except as noted in HPI and below PMFSH Past Medical History Medical History Osteoporosis Hyperparathyroidism PAF (paroxysmal atrial fibrillation) COPD (chronic obstructive pulmonary disease) Thoracic radiculopathy Arthritis Surgical History Surgical History History of tonsillectomy and adenoidectomy Social History Social History Smoking status: Current some day smoker Alcohol intake: former Substance use: never Do You Feel Safe in your Home?: Yes Lack of Transportation: No Lack of Food: Never True Current Housing: I Have Housing Concerned About Future Housing: No Difficulty Paying Gas/Electric Bills: Decline to Answer Difficulty Paying for Meds: No Currently Unemployed: No Education: Associate Degree Difficulty w/ Childcare or Family Care: No Exam Const: General: healthy appearing and no acute distress Nutritional Appearance: well nourished and obese Orientation/consciousness: patient oriented x3 Limitations: no limitations Resp: Effort & Inspection: normal respiratory effort Auscultation: clear to auscultation bilaterally Cardio: Rate: regular rate Rhythm: abnormal rhythm GI: GI Palp: Yes Soft to palpation Auscultation: normal bowel sounds Psych: Affect: Anxious affect present Course Course Emergency Course: Medical decision making narrative: Patient was evaluated by myself. In the emergency department. History obtained from the patient is independent historian physical exam performed witnessed by nurse. Patient anxious after witnessing early this morning and received Xanax to help with anxiety and grieving. Repeat assessment: Patient is doing well on repeat exam in no acute distress Symptoms are improved since arrival to the emergency department. Repeat vitals have improved blood pressure currently 148/92 with a heart rate of 67 O2 sats of 95% on room air. Patient agrees with discussion and after shared medical decision making and agrees with discharge. All questions answered to the patient's satisfaction Follow up with primary within 3 to 5 days for further evaluation and treatment. Vital Signs Vital signs: Vital Signs Temperature 36.1 C L 01/03/25 04:23 Pulse Rate 67 01/03/25 04:23 Respiratory Rate 16 01/03/25 04:23 Blood Pressure 169/105 H 01/03/25 04:23 Pulse Oximetry 93 01/03/25 04:23 Oxygen Delivery Room Air 01/03/25 04:23 Temperature 36.1 C L 01/03/25 04:23 Pulse Rate 67 01/03/25 04:23 Respiratory Rate 16 01/03/25 04:23 Blood Pressure 148/92 H 01/03/25 04:44 Pulse Oximetry 93 01/03/25 04:23 Oxygen Delivery Room Air 01/03/25 04:23 Critical Care Time Critical Care Time Critical Care Time: No Discharge Plan Discharge Clinical Impression: Anxiety Patient Disposition: Home Condition: Stable Instructions: Antibiotic Form, Grief and Loss (ED), Anxiety (ED) Additional Instructions: Advised patient to take medication as prescribed and to follow with primary within next 3 to 5 days further evaluation treatment. Patient Language: Kazakh Prescriptions: New alprazolam [Xanax] 0.5 mg tablet 0.5 mg PO BID PRN (Reason: anxiety) Qty: 20 0RF No Action ropinirole 1 mg tablet 1 mg PO TID celecoxib [Celebrex] 200 mg capsule 200 mg PO BID hydrocodone-acetaminophen 10-325 mg tablet 1 tablet PO QID PRN Breztri Aerosphere 160-9-4.8 mcg/actuation HFA aerosol inhaler 2 inh inhalation BID Rx Instructions: *SAMPLE* [facility]: 8087-5652-96 LOT:[id number] EXP: 03/2026 furosemide 20 mg tablet 20 mg PO QAM PRN (Reason: edema) Qty: 30 1RF aspirin [Adult Aspirin Regimen] 81 mg tablet,delayed release (DR/EC) 81 mg PO DAILY clindamycin HCl 300 mg capsule 300 mg PO Q8H Qty: 15 0RF azelastine 137 mcg (0.1 %) aerosol,spray 1 spray intranasal Q12H Qty: 30 1RF Rx Instructions: administer into each nostril azithromycin 250 mg tablet See Rx Instructions PO DAILY Qty: 6 0RF Rx Instructions: take 500 mg today by mouth - two tablets (day 1), then 250 mg (one tablet) by mouth for 4 days (days 2-5) orally daily; Cepacol Sore Throat-Cough 5-7.5 mg lozenge 1 grzegorz PO Q4H PRN (Reason: sore throat) Qty: 16 0RF atorvastatin 20 mg tablet 20 mg PO DAILY Qty: 90 3RF albuterol sulfate 2.5 mg /3 mL (0.083 %) solution for nebulization See Rx Instructions .ROUTE .COMPLEX Qty: 75 2RF Dose Instruction: INHALE 1 VIAL BY MOUTH EVERY FOUR HOURS NEEDED FOR BRONCHOSPASM; DO NOT TAKE IPRATROPIUM-BROMIDE WHILE ON Rx Instructions: INHALE 1 VIAL BY MOUTH EVERY FOUR HOURS NEEDED FOR BRONCHOSPASM; colchicine 0.6 mg tablet 0.6 mg PO DAILY PRN (Reason: gout attack) Qty: 10 1RF Rx Instructions: Please take 1.2 mg (2 tablets) by mouth at first sign of flare, then 0.6 mg (1 tablet) 1 hr later; do not exceed 1.8 mg in 1-hr period. budesonide-formoterol 160-4.5 mcg/actuation HFA aerosol inhaler See Rx Instructions .ROUTE .COMPLEX Qty: 10.2 2RF Dose Instruction: INHALE TWO (2) PUFFS BY MOUTH EVERY TWELVE HOURS Rx Instructions: INHALE TWO (2) PUFFS BY MOUTH EVERY TWELVE HOURS ipratropium-albuterol 0.5 mg-3 mg(2.5 mg base)/3 mL solution for nebulization See Rx Instructions .ROUTE .COMPLEX Qty: 180 3RF Dose Instruction: INHALE ONE (1) VIAL BY MOUTH EVERY SIX HOURS NEEDED FOR SHORTNESS OF BREATH OR WHEEZING J44.9 Rx Instructions: INHALE ONE (1) VIAL BY MOUTH EVERY SIX HOURS NEEDED FOR SHORTNESS OF BREATH OR WHEEZING J44.9 albuterol sulfate 90 mcg/actuation HFA aerosol inhaler See Rx Instructions .ROUTE .COMPLEX Qty: 6.7 3RF Dose Instruction: INHALE TWO (2) PUFFS BY MOUTH FOUR TIMES A DAY Rx Instructions: INHALE TWO (2) PUFFS BY MOUTH FOUR TIMES A DAY hydrochlorothiazide 12.5 mg tablet See Rx Instructions .ROUTE .COMPLEX Qty: 30 2RF Dose Instruction: TAKE ONE TABLET BY MOUTH DAILY Rx Instructions: TAKE ONE TABLET BY MOUTH DAILY Follow-up/Referrals: Martínez Schwarz APRN [Primary Care Provider, Family Practice] Time of Disposition: 04:56
[2025-01-03] MEDS: ALPRAZolam (*CRX) 0.5 MG TABLET PO (04:56)
[2025-01-03 05:50] VITALS: BP 101/86; PULSE 89; RESP 20; O2SAT 96
== END 2025-01-03 05:50 | disposition home or self-care (01) ==
PROVIDERS: Emergency Provider Emergency Medicine; PCP Nurse Practitioner Family
DX: F41.9 Anxiety disorder, unspecified (principal); I48.91 Unspecified atrial fibrillation; I10 Essential (primary) hypertension; I48.0 Paroxysmal atrial fibrillation; J44.9 Chronic obstructive pulmonary disease, unspecified; F17.210 Nicotine dependence, cigarettes, uncomplicated
CPT/HCPCS: 99283; A9270

== ENCOUNTER 2025-01-20 15:53 | Outpatient (CLI) | payer MEDICARE, SELFPAY ==
[2025-01-20 16:05] LABS: Hematocrit 48.7 % (35.0-42.0); Hemoglobin 16.1 g/dL (11.7-13.8); Immature Granulocyte Percent A 0.4 % (0.0-0.0); Lymphocytes Absolute Auto 1.17 K/mm3 (1.10-4.50); Mean Corpuscular HGB Conc 33.1 g/dL (32-36); Mean Corpuscular Hemoglobin 32.6 pg (27.0-31.0); Mean Corpuscular Volume 98.6 fL (78.0-102.0); Nucleated Red Blood Cells Absolute Auto 0.00 K/mm3 (0.00-0.00); Nucleated Red Blood Cells Perc 0.0 % (0-0.0); Platelet Count Result 254 K/mm3 (150-420); Red Blood Count 4.94 M/mm3 (4.20-5.40); White Blood Count 7.0 K/mm3 (4.8-10.8)
[2025-01-20 16:17] LABS: Alanine Aminotransferase 19 U/L (6-35); Albumin Level 4.8 g/dL (3.5-5.1); Alkaline Phosphatase 106 U/L (38-126); Anion Gap 10 mmol/L (4-12); Aspartate Amino Transferase 29 U/L (14-36); Bilirubin,Total 0.6 mg/dL (0.2-1.3); Blood Urea Nitrogen 22 mg/dL (7-17); Calcium 10.4 mg/dL (8.4-10.2); Carbon Dioxide 24 mmol/L (22-30); Chloride 107 mmol/L (98-107); Estimated Glomerular Filt Rate 60; Glucose 115 mg/dL (65-110); Osmolality Calculated 296 mOsm/kg (285-295); Potassium 4.9 mmol/L (3.4-5.0); Sodium 141 mmol/L (137-145); Total Protein 7.8 g/dL (6.3-8.2)
--- OUTSIDE RECORDS SUMMARY | 2025-01-20 20:51 | XMS_ITS | Encounter Summary ---
Author Organization [facility] Address [address] [place] [address] Care Team Providers Care Processor Helper Name Role Phone Vinayak Manzo MD Unavailable [phone] Martínez Schwarz Unavailable [phone] Dominik Dobbins MD Unavailable [phone] Encounter Details Date Type Department Care Team (Late st Contact Info) Description 06/03/2018 Abstract [facility] at [address] [phone] Yulissa Cerda MA Social History Tobacco Use [...] on filedocumented in this encounter Care Teams Processor Helper Relationship Specialty Start Date End Date Vinayak Manzo MD [address] [address] [place] Track Repair Supervisor CARDIOVASCULAR DISEASE 05/29/18 Martínez Schwarz FNP [address] [place] [phone] Nurse Practitioner Family 09/24/24 Dominik Dobbins MD [address] [place] [address] Consulting Physician CLINICAL CARDIAC ELECTROPHYSIOLOGY 09/28/24 documented as of this encounter
--- OUTSIDE RECORDS SUMMARY | 2025-01-20 20:51 | XMS_ITS | Clinical Summary ---
Author Organization [facility] Address [address] [facility] [place] [address] Care Team Providers Care Speech And Language Clinician Name Role Phone Unavailable Primary Care Provider Unavailabl e Source Comments [facility],non-owned Affiliates and Associated Physician Practices is amultiple site organization consisting of ambulatory clinics and hospital sitesin [place], [place] and [place]. This disclosure is being madepursuant to the Care Everywhere program and may not contain all information available regarding this patient. Last updated 17.[facility] Social History Tobacco Use Types Packs/Day Years Used Date Smoking Tobacco: Never Assessed Comments Unknown Sex and Gender Information Value Date Recorded Sex Assigned at Not on file Legal Sex Female 4:41 PM LIME KILN WORKER HELPER Gender Identity Not on file Sexual Orientation [...] DENSITY AXIAL SKELETON Routine 03/24/2018 5:58 PM LIME KILN WORKER HELPER Sacroiliitis Psoriatic spondylitis from Last 3 Months or Most Recently Relevant to Health Maintenance Results * DEXA BONE DENSITY AXIAL SKELETON (03/24/2018 5:58 PM LIME KILN WORKER HELPER) Anatomical Region Laterality Modality Mammography 03/25/2018 7:34 AM LIME KILN WORKER HELPER Narrative 03/25/2018 7:35 AM LIME KILN WORKER HELPER BONE MINERAL DENSITY STUDY INDICATION: Osteoporosis screening. [...]
--- OUTSIDE RECORDS SUMMARY | 2025-01-20 20:51 | XMS_ITS | Clinical Summary ---
Author Organization [facility] Address [address] [place] [address] Care Team Providers Care Transport Conductor Name Role Phone Vinayak Manzo MD Unavailable [phone] Martínez Schwarz Unavailable [phone] Dominik Dobbins MD Unavailable [phone] Allergies Active Allergy Reactions Criticality Noted Date [...] Department Care Team Description 11/16/2024 Orders Only [facility] [address] [place] [address] Dominik Dobbins MD from Last 3 Months Family History Medical History Relation Comments [place] Brother heart failure Father Heart Attack Maternal [...] ID:Not on file Group ID:Not on file Type:[employer] Address: ATTN CLAIMS [address] [place], [place] [phone] [place] [address] MEDICARE [facility] Care Teams Transport Conductor Relationship Specialty Start Date End Date Vinayak Manzo MD Three [facility]. [address] [address] [place] Crocheter Hand CARDIOVASCULAR DISEASE 05/29/18 Martínez Schwarz FNP [address] [place] [phone] Nurse Practitioner Family 09/24/24 Dominik Dobbins MD [address] [place] [phone] Consulting Physician CLINICAL CARDIAC ELECTROPHYSIOLOGY 09/28/24
== END 2025-01-20 15:54 | disposition home or self-care (01) ==
PROVIDERS: PCP Nurse Practitioner Family; Visit Provider Nurse Practitioner Family
DX: I10 Essential (primary) hypertension (principal); R09.89 Other specified symptoms and signs involving the circulatory and respiratory systems
CPT/HCPCS: 36415; 80053; 85025